=== PATIENT | female | born 1975 | race Caucasian/White ===

== ENCOUNTER 2016-12-19 16:23 | Emergency (ER) | payer BC ==
[~2016-12-19] VITALS: Ht 170.2 cm; Wt 122.5 kg
[~2016-12-19 16:23] MED LIST: AMLO5TAB4 PO; CLON0.5T20 PO; FLUO40CA9 PO; HYDR10TA2 PO; PROM12.56 PO; PROP10TA PO
[2016-12-19] MEDS ORDERED: IV NORMAL SALINE 1000ML BAG 1,000 ML IV SCH (18:05)
[2016-12-19] MEDS ORDERED: ONDANSETRON PF 4 MG/2 ML VIAL. IV ONE (18:15)
[2016-12-19] MEDS ORDERED: HYDROMORPHONE 2 MG/ML VIAL. IV ONE ×2 (18:15→19:45)
[2016-12-19] MEDS: LOPERAMIDE 2 MG CAPSULE PO PRN ×3 (19:01→20:05)
--- NOTE | 2016-12-19 19:26 | ED.ADGEN ---
Past Medical History Past Medical History: Anxiety, Depression, Diabetes-Type II, GERD, Hypertension , Migraines, Other Additional Past Medical Histor: Borderline Personality Disorder Past Surgical History: Appendectomy, Cholecystectomy, , Tonsillectomy Alcohol Use: None Drug Use: None Adult General Chief Complaint Chief Complaint: ABDOMINAL PAIN HPI HPI Patient is a 41 year old female presents emergency department complaining that she has had 3-4 week history of nausea, diarrhea, and right upper quadrant pain. Patient has been seen at multiple ERs and in her primary care physician for the same complaint. She states that the diarrhea was intolerable today. She tells me that she has been taking diazepam and Imodium for her diarrhea. She denies any vaginal bleeding or discharge. Denies any dysuria. She denies any fevers or chills. Review of Systems Review of Systems Constitutional: Denies fever or chills. [] Eyes: Denies change in visual acuity. [] HENT: Denies nasal congestion or sore throat. [] Respiratory: Denies cough or shortness of breath. [] Cardiovascular: Denies chest pain or edema. [] GI: Denies abdominal pain, nausea, vomiting, bloody stools or diarrhea. [] : Denies dysuria. [] Musculoskeletal: Denies back pain or joint pain. [] Integument: Denies rash. [] Neurologic: Denies headache, focal weakness or sensory changes. [] Endocrine: Denies polyuria or polydipsia. [] Lymphatic: Denies swollen glands. [] Psychiatric: Denies depression or anxiety. [] Current Medications Current Medications Current Medications Medications (Trade) Dose Ordered Sig/Zenaida Start Time Stop Time Status Last Admin Dose Admin Hydromorphone HCl (Dilaudid) 1 mg 1X ONCE 12/19/16 19:45 12/19/16 19:46 DC 12/19/16 19:59 1 MG Loperamide HCl (Imodium) 2 mg PRN Q15MIN PRN 12/19/16 18:15 12/19/16 20:19 DC 12/19/16 20:04 2 MG Ondansetron HCl 4 mg 4 mg 1X ONCE 12/19/16 18:15 12/19/16 18:16 DC 12/19/16 18:50 4 MG Sodium Chloride (Iv Sodium Chloride 0.9% 1000ml Bag) 1,000 ml @ 1,000 mls/hr Q1H 12/19/16 18:05 12/19/16 19:04 DC 12/19/16 18:48 1,000 MLS/HR Allergies Allergies Allergies Coded Allergies Type Severity Reaction Last Updated Verified Nitrofurantoin Macrocrystal Allergy Intermediate hives 12/19/16 Yes eletriptan HBr Allergy Intermediate "Heart races" 12/19/16 Yes metoclopramide HCl Allergy Intermediate rash 12/19/16 Yes nalbuphine HCl Allergy Intermediate itch 12/19/16 Yes nitrofurantoin Allergy Intermediate hives 12/19/16 Yes prochlorperazine edisylate Adverse Reaction Intermediate "Shakes" 12/19/16 Yes prochlorperazine maleate Adverse Reaction Intermediate "Shakes" 12/19/16 Yes Physical Exam Physical Exam Constitutional: Well developed, well nourished, no acute distress, non-toxic appearance. [] HENT: Normocephalic, atraumatic, bilateral external ears normal, oropharynx moist, no oral exudates, nose normal. [] Eyes: PERRLA, EOMI, conjunctiva normal, no discharge. [] Neck: Normal range of motion, no tenderness, supple, no stridor. [] Cardiovascular:Heart rate regular rhythm, no murmur [] Lungs & Thorax: Bilateral breath sounds clear to auscultation [] Abdomen: Bowel sounds normal, soft, no tenderness, no masses, no pulsatile masses. [] Skin: Warm, dry, no erythema, no rash. [] Back: No tenderness, no CVA tenderness. [] Extremities: No tenderness, no cyanosis, no clubbing, ROM intact, no edema. [] Neurologic: Alert and oriented X 3, normal motor function, normal sensory function, no focal deficits noted. [] Psychologic: Affect normal, judgement normal, mood normal. [] Current Patient Data Vital Signs Vital Signs Date Time Temp Pulse Resp B/P Pulse Ox O2 Delivery O2 Flow Rate FiO2 12/19/16 20:10 78 20 114/74 94 Room Air 12/19/16 16:50 98.9 98.9 EKG EKG [] Radiology/Procedures Radiology/Procedures KUB interpreted by me, no acute process noted, no air-fluid levels. [] Course & Med Decision Making Course & Med Decision Making Pertinent Labs and Imaging studies reviewed. (See chart for details) Patient has had no diarrhea while here in emergency department. She did receive a dose of loperamide. She will be discharged home with prescription for Lomotil as well as instructions to follow-up with her physician. [] Dragon Disclaimer Dragon Disclaimer This electronic medical record was generated, in whole or in part, using a voice recognition dictation system. VANESSA MCCORD MD Dec 19, 2016 19:26
[2016-12-19] MEDS ORDERED: DIPH1TAB PO (19:44)
[2016-12-19 20:10] VITALS: BP 114/74
--- NOTE | 2016-12-20 08:00 | RAD ---
KUB, 12/19/2016: History: Abdominal pain The abdominal gas pattern is unremarkable without evidence of obstruction. Surgical clips are present in the right upper quadrant. There is no evidence of organomegaly. Lower pelvic calcifications are compatible with phleboliths. IMPRESSION: No acute abdominal abnormality is detected.
[2016-12-20] MEDS ORDERED: FLUC150T PO (12:32)
== END 2016-12-19 20:10 | disposition home or self-care (01) ==
LOC: ER 16:23
DX: R10.11 Right upper quadrant pain (principal); R19.7 Diarrhea, unspecified; R11.0 Nausea; F41.9 Anxiety disorder, unspecified; F32.9 Major depressive disorder, single episode, unspecified; E11.9 Type 2 diabetes mellitus without complications; I10 Essential (primary) hypertension; K21.9 Gastro-esophageal reflux disease without esophagitis; Z88.8 Allergy status to other drugs, medicaments and biological substances; Z90.49 Acquired absence of other specified parts of digestive tract
CPT/HCPCS: 74000; 96361; 96374; 96375; 96376; 99284; J1170; J2405; J7030

== ENCOUNTER 2017-02-13 16:17 | Emergency (ER) | payer BC ==
[~2017-02-13] VITALS: Ht 170.2 cm; Wt 74.8 kg
[~2017-02-13 16:17] MED LIST changes: +DIPH1TAB PO; +FLUC150T PO
[2017-02-13] MEDS ORDERED: PROMETHAZINE 12.5 MG in IV NORMAL SALINE 50ML 50 ML IV ONE (17:45)
[2017-02-13] MEDS ORDERED: DIPHENHYDRAMINE 50 MG/ML VIAL IVP ONE (18:00)
[2017-02-13] MEDS ORDERED: methylPREDNISolone SOD SUCC PF 125 MG/2 ML VIAL. IV ONE (18:00)
[2017-02-13] MEDS ORDERED: IV NORMAL SALINE 1000ML BAG 1,000 ML IV ONE (18:00)
[2017-02-13] MEDS ORDERED: BUTA1CAP29 PO (18:26)
--- NOTE | 2017-02-13 18:27 | PHYS DOC ---
Past Medical History Past Medical History: Anxiety, Depression, Diabetes-Type II, GERD, Hypertension , Migraines, Other Additional Past Medical Histor: Borderline Personality Disorder Past Surgical History: Appendectomy, Cholecystectomy, , Tonsillectomy , Tubal ligation, Other Additional Past Surgical Histo: Colonoscopy,Sinus tumor removed Alcohol Use: None Drug Use: None Adult General Chief Complaint Chief Complaint: HEADACHE HPI HPI 41-year-old female with a long-standing history of migraine headaches presents with a headache consistent with her previous migraine since yesterday morning. She states pain is 10 out of 10 currently. She denies any fever or neck pain. She denies any lateralizing neurologic weakness. She does admit to photophobia and phonophobia. [] Review of Systems Review of Systems Constitutional: Denies fever or chills [] Eyes: Denies change in visual acuity, redness, or eye pain [] HENT: Denies nasal congestion or sore throat [] Respiratory: Denies cough or shortness of breath [] Cardiovascular: No additional information not addressed in HPI [] GI: Denies abdominal pain, nausea, vomiting, bloody stools or diarrhea [] : Denies dysuria or hematuria [] Musculoskeletal: Denies back pain or joint pain [] Integument: Denies rash or skin lesions [] Neurologic: Per history of present illness [] Endocrine: Denies polyuria or polydipsia [] Current Medications Current Medications Current Medications Medications (Trade) Dose Ordered Sig/Zenaida Start Time Stop Time Status Last Admin Dose Admin Diphenhydramine HCl (Benadryl) 25 mg 1X ONCE 02/13/17 18:00 02/13/17 18:01 DC 02/13/17 18:01 25 MG Methylprednisolone Sodium Succinate 125 mg 125 mg 1X ONCE 02/13/17 18:00 02/13/17 18:01 DC 02/13/17 18:01 125 MG Promethazine HCl/ Sodium Chloride (Phenergan/Iv Sodium Chloride 0.9% 50ml) 50.5 ml @ 101 mls/hr 1X ONCE 02/13/17 17:45 02/13/17 18:14 DC 02/13/17 18:03 101 MLS/HR Sodium Chloride (Iv Sodium Chloride 0.9% 1000ml Bag) 1,000 ml @ 1,000 mls/hr 1X ONCE 02/13/17 18:00 02/13/17 18:59 02/13/17 18:02 1,000 MLS/HR Allergies Allergies Allergies Coded Allergies Type Severity Reaction Last Updated Verified Nitrofurantoin Macrocrystal Allergy Intermediate hives 12/19/16 Yes eletriptan HBr Allergy Intermediate "Heart races" 12/19/16 Yes metoclopramide HCl Allergy Intermediate rash 12/19/16 Yes nalbuphine HCl Allergy Intermediate itch 12/19/16 Yes nitrofurantoin Allergy Intermediate hives 12/19/16 Yes prochlorperazine edisylate Adverse Reaction Intermediate "Shakes" 12/19/16 Yes prochlorperazine maleate Adverse Reaction Intermediate "Shakes" 12/19/16 Yes Physical Exam Physical Exam Constitutional: Well developed, well nourished, no acute distress, non-toxic appearance. [] HENT: Normocephalic, atraumatic, bilateral external ears normal, oropharynx moist, no oral exudates, nose normal. [] Eyes: PERRLA, EOMI, conjunctiva normal, no discharge. [] Neck: Normal range of motion, no tenderness, supple, no stridor. [] Cardiovascular:Heart rate regular rhythm, no murmur [] Lungs & Thorax: Bilateral breath sounds clear to auscultation [] Abdomen: Bowel sounds normal, soft, no tenderness, no masses, no pulsatile masses. [] Skin: Warm, dry, no erythema, no rash. [] Back: No tenderness, no CVA tenderness. [] Extremities: No tenderness, no cyanosis, no clubbing, ROM intact, no edema. [] Neurologic: Alert and oriented X 3, normal motor function, normal sensory function, no focal deficits noted. [] Psychologic: Affect normal, judgement normal, mood normal. [] Current Patient Data Vital Signs Vital Signs Date Time Temp Pulse Resp B/P Pulse Ox O2 Delivery O2 Flow Rate FiO2 02/13/17 16:45 98.1 76 18 139/93 96 Room Air 98.1 EKG EKG [] Radiology/Procedures Radiology/Procedures [] Course & Med Decision Making Course & Med Decision Making Pertinent Labs and Imaging studies reviewed. (See chart for details) [ED course: Evaluation reveals a 41-year-old female with typical migraine type symptoms. Neurologic exam was completely benign. Patient was given IV fluids, Phenergan, Solu-Medrol and Benadryl with near complete resolution of her symptoms. I gave her prescription for Fioricet to take at home. She is stable for discharge] Ysabel Disclaimer Ysabel Disclaimer This electronic medical record was generated, in whole or in part, using a voice recognition dictation system. Departure Departure Impression: Primary Impression: Chronic migraine without aura Disposition: HOME, SELF-CARE Condition: STABLE Referrals: HAYLIE LERNER (PCP) Patient Instructions: Migraine Headache Additional Instructions: Thank you for allowing us to participate in your care today. Followup with your primary care physician in 3 days if your symptoms do not improve. Return to the emergency department you have any new or concerning findings. This should be evaluated by the primary care physician and any necessary consulting services for continued management within a few days after discharge. Return to emergency room if you have any new or concerning symptoms including but not limited to fever, chills, nausea, vomiting, intractable pain, any new rashes, chest pain, shortness of air, uncontrolled bleeding, difficulty breathing, and/or vision loss. You may have been prescribed medication that can change in your level of thinking and ability to operate machinery. These medications include hydrocodone and Ativan. Also, Benadryl has been known to do this as well. Be sure to check with your pharmacist and ask if the medications you've prescribed can affect your level of consciousness. I recommend not operating heavy machinery or driving while on medication such as these. Scripts Butalb/Acetaminophen/Caffeine (Fioricet 50-300-40 Mg Capsule)1 Each Capsule1 Each PO PRN Q4HRS PRN MIGRAINE HEADACHE #30 CAP Prov:MARY JOHNSON DO 02/13/17 Problem Qualifiers Primary Impression: Chronic migraine without aura Status migrainosus presence: without status migrainosus Intractability: not intractable Qualified Code: G43.709 - Chronic migraine without aura, not intractable, without status migrainosus MARY JOHNSON DO Feb 13, 2017 18:26
[2017-02-13 18:40] VITALS: BP 128/5
== END 2017-02-13 18:43 | disposition home or self-care (01) ==
LOC: ER 16:17
DX: G43.709 Chronic migraine without aura, not intractable, without status migrainosus (principal); E11.9 Type 2 diabetes mellitus without complications; I10 Essential (primary) hypertension; K21.9 Gastro-esophageal reflux disease without esophagitis; Z88.8 Allergy status to other drugs, medicaments and biological substances
CPT/HCPCS: 96365; 96375; 99284; J1200; J2550; J2930; J7030

== ENCOUNTER 2017-03-26 13:19 | Emergency (ER) | payer BC ==
[~2017-03-26] VITALS: Ht 165.1 cm; Wt 122.5 kg
[~2017-03-26 13:19] MED LIST changes: +BUTA1CAP29 PO
[2017-03-26 13:26] VITALS: BP 130/77
[2017-03-26] MEDS ORDERED: NAPROXEN 500 MG TABLET PO STA (13:53)
--- NOTE | 2017-03-26 14:05 | PHYS DOC ---
Past Medical History Past Medical History: Anxiety, Depression, Diabetes-Type II, GERD, Hypertension , Migraines, Other Additional Past Medical Histor: Borderline Personality Disorder Past Surgical History: Appendectomy, Cholecystectomy, , Tonsillectomy , Tubal ligation, Other Additional Past Surgical Histo: Colonoscopy,Sinus tumor removed Alcohol Use: None Drug Use: None Adult General Chief Complaint Chief Complaint: KNEE INJURY HPI HPI Patient is a 41 year old female with history of hypertension, diabetes type 2, depression, anxiety, acid reflex, migraine headaches, who presents today with 7 out of 10 sharp right medial knee pain that began today after she kicked a soccer ball. Patient denies falling. She states the pain is worse when she tries to flex the knee. Review of Systems Review of Systems Constitutional: Denies fever or chills [] Eyes: Denies change in visual acuity, redness, or eye pain [] Musculoskeletal: Right knee pain Integument: Denies rash or skin lesions [] Neurologic: Denies headache, focal weakness or sensory changes [] Endocrine: Denies polyuria or polydipsia [] Current Medications Current Medications Current Medications Medications (Trade) Dose Ordered Sig/Zenaida Start Time Stop Time Status Last Admin Dose Admin Naproxen (Naprosyn) 500 mg 1X STAT 03/26/17 13:53 03/26/17 13:57 DC 03/26/17 13:53 500 MG Allergies Allergies Allergies Coded Allergies Type Severity Reaction Last Updated Verified Nitrofurantoin Macrocrystal Allergy Intermediate hives 12/19/16 Yes eletriptan HBr Allergy Intermediate "Heart races" 12/19/16 Yes metoclopramide HCl Allergy Intermediate rash 12/19/16 Yes nalbuphine HCl Allergy Intermediate itch 12/19/16 Yes nitrofurantoin Allergy Intermediate hives 12/19/16 Yes prochlorperazine edisylate Adverse Reaction Intermediate "Shakes" 12/19/16 Yes prochlorperazine maleate Adverse Reaction Intermediate "Shakes" 12/19/16 Yes Physical Exam Physical Exam Constitutional: Well developed, well nourished, no acute distress, non-toxic appearance. [] HENT: Normocephalic, atraumatic, bilateral external ears normal, oropharynx moist, no oral exudates, nose normal. [] Skin: Warm, dry, no erythema, no rash. [] Back: No tenderness, no CVA tenderness. [] Extremities: Right knee with an old healed surgical incision on the anterior and knee. Tenderness on palpation of the right medial knee. Full range of motion to the right knee. Negative Jade sign and negative Reji's sign negative anterior-posterior drawer sign to the right knee. +2 right pedal pulse. Cap refill less than 2 seconds the right lower extremity. Sensation intact to the right lower extremity. Neurologic: Alert and oriented X 3, normal motor function, normal sensory function, no focal deficits noted. [] Psychologic: Affect normal, judgement normal, mood normal. [] Current Patient Data Vital Signs Vital Signs Date Time Temp Pulse Resp B/P (MAP) Pulse Ox O2 Delivery O2 Flow Rate FiO2 03/26/17 13:26 97.6 85 18 97 Room Air 97.6 EKG EKG [] Radiology/Procedures Radiology/Procedures [] Course & Med Decision Making Course & Med Decision Making Pertinent Labs and Imaging studies reviewed. (See chart for details) Patient is in the ED with complaints of right knee pain after kicking a soccer ball. Right knee x-rays interpreted by radiologist are negative for any acute findings. Ben wrap applied to the right knee by the bomb technician, neurovascular exam done by me is normal, cap refill less than 2 seconds. Ice elevation encouraged. Discharged with Ultram. Follow-up with orthopedic doctor in one week if pain continues. Dragon Disclaimer Dragon Disclaimer This electronic medical record was generated, in whole or in part, using a voice recognition dictation system. Departure Departure Impression: Primary Impression: Right knee sprain Disposition: 01 HOME, SELF-CARE Condition: STABLE Referrals: HAYLIE LERNER (PCP) JAGDISH EASON MD Follow-up in one week with an orthopedic doctor if pain continues Patient Instructions: Knee Sprain Additional Instructions: You were seen for right knee sprain. Your x-rays of the knee and negative for any acute findings.Wear the immobilizer provided as tolerated. Ice and elevate the extremity. You can put weight on it as tolerated. Follow-up with your own orthopedic doctor or the provided doctor in one week if pain continues. Scripts Tramadol Hcl (ULTRAM) 50 Mg Tablet 1 TAB PO Q6HRS, #30 TAB Prov: ABRAN VIRAMONTES ONLINE ADVERTISING DIRECTOR 03/26/17 Problem Qualifiers Primary Impression: Right knee sprain Encounter type: initial encounter Involved ligament of knee: unspecified ligament Qualified Codes: S83.91XA - Sprain of unspecified site of right knee , initial encounter ABRAN VIRAMONTES ONLINE ADVERTISING DIRECTOR March 26, 2017 14:05
--- NOTE | 2017-03-26 14:10 | RAD ---
Indication pain. Injury. AP oblique and lateral views of the right knee were obtained as well as a sunrise view. No bony abnormality is seen
[2017-03-26] MEDS ORDERED: TRAM-29 PO (14:22)
== END 2017-03-26 14:50 | disposition home or self-care (01) ==
LOC: ER 13:19
DX: S83.91XA Sprain of unspecified site of right knee, initial encounter (principal); E11.9 Type 2 diabetes mellitus without complications; I10 Essential (primary) hypertension; K21.9 Gastro-esophageal reflux disease without esophagitis; G43.909 Migraine, unspecified, not intractable, without status migrainosus; Z90.49 Acquired absence of other specified parts of digestive tract; Z98.890 Other specified postprocedural states; Z98.51 Tubal ligation status; Z88.8 Allergy status to other drugs, medicaments and biological substances
CPT/HCPCS: 73564; 99284-25

== ENCOUNTER 2017-04-20 23:57 | Emergency (ER) | payer BC ==
[~2017-04-20] VITALS: Ht 170.2 cm; Wt 118.4 kg
[~2017-04-20 23:57] MED LIST changes: +TRAM-29 PO
[2017-04-21 00:32] LABS: BILIRUBIN,URINE NEGATIVE (NEG); GLUCOSE,URINE NEGATIVE (NEG); NITRITE,URINE NEGATIVE (NEG); PROTEIN,URINE 30 mg/dL (NEG-TRACE); UROBILINOGEN,URINE 0.2 mg/dL (0.2 mg/dL)
[2017-04-21 00:36] LABS: BACTERIA,URINE MODERATE /HPF (0-FEW)
[2017-04-21 00:37] LABS: SQUAMOUS EPITHELIAL CELL,UR MANY /LPF
[2017-04-21] MEDS ORDERED: ONDANSETRON PF 4 MG/2 ML VIAL. IV ONE (00:45)
[2017-04-21] MEDS ORDERED: KETOROLAC TROMETHAMINE 30 MG/ML INJ. IV ONE (00:45)
[2017-04-21] MEDS ORDERED: fentaNYL PF VIAL 100 MCG/2 ML VIAL IV ONE (00:45)
--- NOTE | 2017-04-21 00:51 | PHYS DOC ---
Past Medical History Past Medical History: Anxiety, Depression, Diabetes-Type II, GERD, Hypertension , Kidney Stone, Migraines, Other Additional Past Medical Histor: Borderline Personality Disorder Past Surgical History: Appendectomy, Cholecystectomy, , Tonsillectomy , Tubal ligation, Other Additional Past Surgical Histo: Colonoscopy,Sinus tumor removed Alcohol Use: None Drug Use: None Adult General Chief Complaint Chief Complaint: FLANK PAIN HPI HPI Patient is a 41 year old female who presents with for evaluation of right flank pain radiating to right lower abdomen that started today. She states she is being treated for a urinary tract infection with Cipro for the past 3 days and is not improving. She now has hematuria today. States her flank pain feels similar to the one time she had a kidney stone prior. Pain is constant, achy, with intermittent fluctuations. She has mild nausea. She denies fever or chills, emesis, diarrhea, constipation, chest pain, cough, dyspnea. Review of Systems Review of Systems Constitutional: Denies fever or chills [] Eyes: Denies change in visual acuity, redness, or eye pain [] HENT: Denies nasal congestion or sore throat [] Respiratory: Denies cough or shortness of breath [] Cardiovascular: No additional information not addressed in HPI [] GI: Denies vomiting, bloody stools or diarrhea [] : Has dysuria and hematuria [] Musculoskeletal: Denies joint pain [] Integument: Denies rash or skin lesions [] Neurologic: Denies headache, focal weakness or sensory changes [] Endocrine: Denies polyuria or polydipsia [] Current Medications Current Medications Current Medications Medications (Trade) Dose Ordered Sig/[facility] Start Time Stop Time Status Last Admin Dose Admin Fentanyl Citrate (Fentanyl 2ml Vial) 75 mcg 1X ONCE 04/21/17 00:45 04/21/17 00:46 DC 04/21/17 00:49 75 MCG Ketorolac Tromethamine (Toradol) 10 mg 1X ONCE 04/21/17 00:45 04/21/17 00:46 DC 04/21/17 00:49 10 MG Ondansetron HCl (Zofran) 4 mg 1X ONCE 04/21/17 00:45 04/21/17 00:46 DC 04/21/17 00:48 4 MG Allergies Allergies Allergies Coded Allergies Type Severity Reaction Last Updated Verified Nitrofurantoin Macrocrystal Allergy Intermediate hives 1/30/17 Yes eletriptan HBr Allergy Intermediate "Heart races" 12/19/16 Yes metoclopramide HCl Allergy Intermediate rash 12/19/16 Yes nalbuphine HCl Allergy Intermediate itch 12/19/16 Yes nitrofurantoin Allergy Intermediate hives 12/19/16 Yes tobramycin Allergy Unknown swelling - lips, eyes 04/21/17 Yes prochlorperazine edisylate Adverse Reaction Intermediate "Shakes" 12/19/16 Yes prochlorperazine maleate Adverse Reaction Intermediate "Shakes" 12/19/16 Yes Physical Exam Physical Exam Constitutional: Well developed, well nourished, no acute distress, non-toxic appearance. [] HENT: Normocephalic, atraumatic, bilateral external ears normal, oropharynx moist, nose normal. [] Eyes: PERRLA, EOMI. [] Neck: Normal range of motion, supple. [] Cardiovascular:Heart rate regular rhythm [] Lungs & Thorax: Bilateral breath sounds clear to auscultation [] Abdomen: Bowel sounds normal, soft, no tenderness. [] Skin: Warm, dry, no erythema, no rash. [] Back: No tenderness. Mild right CVA tenderness; no left CVA tenderness. [] Extremities: No tenderness, ROM intact, no edema. [] Neurologic: Alert and oriented X 3, normal motor function, normal sensory function, no focal deficits noted. [] Psychologic: Affect normal, judgement normal, mood normal. [] Current Patient Data Vital Signs Vital Signs Date Time Temp Pulse Resp B/P (MAP) Pulse Ox O2 Delivery O2 Flow Rate FiO2 04/21/17 00:49 18 97 Room Air 04/21/17 00:09 99.1 85 125/89 (101) 99.1 Lab Values Laboratory Tests Test 04/20/17 23:32 04/21/17 00:09 04/21/17 00:30 04/21/17 01:10 POC Urine HCG, Qualitative Hcg negative (Negative) Urine Collection Type Unknown Urine Color Yellow Urine Clarity Cloudy Urine pH 6.0 Urine Specific [place] 1.015 Urine Protein 30 mg/dL (NEG-TRACE) Urine Glucose (UA) Negative mg/dL (NEG) Urine Ketones (Stick) Negative mg/dL (NEG) Urine Blood Large (NEG) Urine Nitrite Negative (NEG) Urine Bilirubin Negative (NEG) Urine Urobilinogen Dipstick 0.2 mg/dL (0.2 mg/dL) Urine Leukocyte Esterase Small (NEG) Urine RBC 1-2 /HPF (0-2) Urine WBC 5-10 /HPF (0-4) Urine Squamous Epithelial Cells Many /LPF Urine Bacteria Moderate /HPF (0-FEW) Urine Mucus Mod /LPF White Blood Count 8.0 x10^3/uL (4.0-11.0) Red Blood Count 4.34 x10^6/uL (3.50-5.40) Hemoglobin 12.5 g/dL (12.0-15.5) Hematocrit 37.8 % (36.0-47.0) Mean Corpuscular Volume 87 fL (79-100) Mean Corpuscular Hemoglobin 29 pg (25-35) Mean Corpuscular Hemoglobin Concent 33 g/dL (31-37) Red Cell Distribution Width 15.3 % (11.5-14.5) H Platelet Count 275 x10^3/uL (140-400) Neutrophils (%) (Auto) 43 % (31-73) Lymphocytes (%) (Auto) 46 % (24-48) Monocytes (%) (Auto) 8 % (0-9) Eosinophils (%) (Auto) 3 % (0-3) Basophils (%) (Auto) 1 % (0-3) Neutrophils # (Auto) 3.4 x10^3uL (1.8-7.7) Lymphocytes # (Auto) 3.7 x10^3/uL (1.0-4.8) Monocytes # (Auto) 0.6 x10^3/uL (0.0-1.1) Eosinophils # (Auto) 0.3 x10^3/uL (0.0-0.7) Basophils # (Auto) 0.0 x10^3/uL (0.0-0.2) Sodium Level 138 mmol/L (136-145) Potassium Level 3.5 mmol/L (3.5-5.1) Chloride Level 102 mmol/L (98-107) Carbon Dioxide Level 25 mmol/L (21-32) Anion Gap 11 (6-14) Blood Urea Nitrogen 7 mg/dL (7-20) Creatinine 0.9 mg/dL (0.6-1.0) Estimated GFR (Cockcroft-Gault) 68.3 Glucose Level 171 mg/dL (70-99) H Calcium Level 8.8 mg/dL (8.5-10.1) Laboratory Tests 04/21/17 00:30 Laboratory Tests 04/21/17 01:10 Radiology/Procedures Radiology/Procedures CT abdomen and pelvis without contrast IMPRESSION: 1. No renal or ureteral calculi. 2. Mild extrahepatic biliary dilatation status post cholecystectomy. Correlate for cholestasis to assess significance. Electronically signed by: Dhaval Manjarrez MD (04/21/2017 1:21 AM) Course & Med Decision Making Course & Med Decision Making Pertinent Labs and Imaging studies reviewed. (See chart for details) Laboratory evaluation is largely unremarkable other than signs of urinary tract infection. Imaging as above is largely unremarkable. She is feeling better after medications here. Will give short course of pain medication for concern of pyelonephritis. She is currently on Cipro, recommend calling PCP in the morning to see if urine culture is sensitive to Cipro. Will give prescription for Bactrim just in case it is not. She currently has a prescription for nausea medicine. Return precautions given. She understands and agrees with plan. Dragon Disclaimer Dragon Disclaimer This electronic medical record was generated, in whole or in part, using a voice recognition dictation system. Departure Departure Impression: Primary Impression: Pyelonephritis Disposition: 01 HOME, SELF-CARE Condition: STABLE Referrals: HAYLIE LERNER (PCP) Patient Instructions: Pyelonephritis, Adult, [id number] Additional Instructions: Continue Cipro at this time. Call your primary care doctor in the morning to see results of urine culture. Take Bactrim if urine culture indicates need of change of antibiotic. Take Tylenol or ibuprofen as needed for moderate pain. Take hydrocodone as needed for severe pain. Do not drink, drive or operate heavy machinery after taking hydrocodone as it may make you sleepy. Follow-up with your primary care doctor. Return for any concerns. Scripts Sulfamethoxazole/Trimethoprim (BACTRIM DS TABLET) 1 Each Tablet 1 TAB PO BID, #14 TAB Prov: Troy MCKEON MD 04/21/17 Hydrocodone Bit/Acetaminophen (HYDROCODONE-APAP 5-325 ) 1 Each Tablet 1-2 TAB PO PRN Q6HRS Y for PAIN, #10 TAB 0 Refills Prov: Troy MCKEON MD 04/21/17 Troy MCKEON MD Apr 21, 2017 00:51
[2017-04-21 00:54] LABS: BASO % 1 % (0-3); EOS % 3 % (0-3); HEMATOCRIT 37.8 % (36.0-47.0); HEMOGLOBIN 12.5 g/dL (12.0-15.5); LYMPH # 3.7 x10^3/uL (1.0-4.8); LYMPH % 46 % (24-48); MEAN CORPUSCULAR HEMOGLOBIN 29 pg (25-35); MEAN CORPUSCULAR HGB CONC 33 g/dL (31-37); MEAN CORPUSCULAR VOLUME 87 fL (79-100); MONO % 8 % (0-9); NEUT % 43 % (31-73); PLATELET COUNT 275 x10^3/uL (140-400); RED BLOOD COUNT 4.34 x10^6/uL (3.50-5.40); RED CELL DISTRIBUTION WIDTH 15.3 % (11.5-14.5)
--- NOTE | 2017-04-21 01:24 | RAD ---
EXAM: CT ABDOMEN/PELVIS WITHOUT CONTRAST. HISTORY: Right flank pain. TECHNIQUE: Computed tomography of the abdomen and pelvis was performed without intravenous contrast. COMPARISON: None. FINDINGS: Lung windows through the visualized portions of the bases reveal mild atelectasis. Bone windows reveal no suspicious lesions. No renal or ureteral calculi are identified. There are multiple phleboliths in the pelvis. There is no hydronephrosis. There are no bladder calculi. The gallbladder is surgically absent. The common duct measures 11 mm. There is no evidence of a distal obstructing lesion. The liver, spleen, pancreas, and adrenal glands are unremarkable without contrast. There are no pathologically enlarged lymph nodes. The appendix contains an appendicolith but does not appear inflamed. There is no obstruction. IMPRESSION: 1. No renal or ureteral calculi. 2. Mild extrahepatic biliary dilatation status post cholecystectomy. Correlate for cholestasis to assess significance. *One or more of the following individualized dose reduction techniques were utilized for this examination: 1. Automated exposure control. 2. Adjustment of the mA and/or kV according to patient size. 3. Use of iterative reconstruction technique. Electronically signed by: Dhaval Manjarrez MD (04/21/2017 1:21 AM)
[2017-04-21 01:27] LABS: CALCIUM 8.8 mg/dL (8.5-10.1); CREATININE 0.9 mg/dL (0.6-1.0); GFR 68.3; POTASSIUM 3.5 mmol/L (3.5-5.1)
[2017-04-21] MEDS ORDERED: HYDR-2666 PO (02:01)
[2017-04-21] MEDS ORDERED: SULF1TAB24 PO (02:01)
[2017-04-21 02:14] VITALS: BP 135/80
[2017-04-21] MEDS ORDERED: HYDROcodone/APAP 5/325MG 1 TAB TABLET PO ONE (02:15)
== END 2017-04-21 02:24 | disposition home or self-care (01) ==
LOC: ER 23:57
DX: N12 Tubulo-interstitial nephritis, not specified as acute or chronic (principal); G43.909 Migraine, unspecified, not intractable, without status migrainosus; I10 Essential (primary) hypertension; K21.9 Gastro-esophageal reflux disease without esophagitis; E11.9 Type 2 diabetes mellitus without complications; Z90.49 Acquired absence of other specified parts of digestive tract; Z87.442 Personal history of urinary calculi; Z88.1 Allergy status to other antibiotic agents; Z88.8 Allergy status to other drugs, medicaments and biological substances
CPT/HCPCS: 36415; 74176; 80048; 81001; 81025; 85027; 87086; 96374; 96375; 99285; J1885; J2405; J3010

== ENCOUNTER 2017-04-24 01:25 | Inpatient (IN) | payer BC ==
[~2017-04-24] VITALS: Ht 170.2 cm; Wt 120.9 kg
[~2017-04-24 01:25] MED LIST changes: +HYDR-2666 PO; +SULF1TAB24 PO
[2017-04-24] MEDS ORDERED: IV NORMAL SALINE 1000ML BAG 1,000 ML IV ONE (02:00)
[2017-04-24] MEDS ORDERED: ONDANSETRON PF 4 MG/2 ML VIAL. IV ONE (02:15)
[2017-04-24 02:46] LABS: BILIRUBIN,URINE NEGATIVE (NEG); GLUCOSE,URINE NEGATIVE (NEG); NITRITE,URINE NEGATIVE (NEG); PROTEIN,URINE NEGATIVE (NEG-TRACE); UROBILINOGEN,URINE 0.2 mg/dL (0.2 mg/dL)
[2017-04-24 03:32] LABS: RBC,URINE TNTC /HPF (0-2)
[2017-04-24 03:33] LABS: BACTERIA,URINE MODERATE /HPF (0-FEW); SQUAMOUS EPITHELIAL CELL,UR FEW /LPF
[2017-04-24] MEDS: fentaNYL PF VIAL 100 MCG/2 ML VIAL IV PRN ×8 (03:35→23:05)
[2017-04-24 03:38] LABS: NEG OBC UR NEG; POS OBC UR POS
[2017-04-24 03:48] LABS: BASO % 1 % (0-3); EOS % 3 % (0-3); HEMATOCRIT 33.9 % (36.0-47.0); HEMOGLOBIN 11.1 g/dL (12.0-15.5); LYMPH # 2.9 x10^3/uL (1.0-4.8); LYMPH % 48 % (24-48); MEAN CORPUSCULAR HEMOGLOBIN 29 pg (25-35); MEAN CORPUSCULAR HGB CONC 33 g/dL (31-37); MEAN CORPUSCULAR VOLUME 88 fL (79-100); MONO % 8 % (0-9); NEUT % 40 % (31-73); PLATELET COUNT 197 x10^3/uL (140-400); RED BLOOD COUNT 3.86 x10^6/uL (3.50-5.40); RED CELL DISTRIBUTION WIDTH 15.2 % (11.5-14.5); WHITE BLOOD COUNT 6.1 x10^3/uL (4.0-11.0)
[2017-04-24 04:02] LABS: CALCIUM 9.4 mg/dL (8.5-10.1); CREATININE 0.8 mg/dL (0.6-1.0); GFR 78.3; POTASSIUM 4.8 mmol/L (3.5-5.1)
[2017-04-24] MEDS ORDERED: LIDO:MAALOX:DONNATAL 1:1:1 15 ML SINGLE DOSE SWSW ONE (04:45)
[2017-04-24] MEDS ORDERED: ACETAMINOPHEN 325 MG TABLET. PO PRN (04:45)
--- NOTE | 2017-04-24 04:59 | PHYS DOC ---
Past Medical History Past Medical History: Anxiety, Depression, Diabetes-Type II, GERD, Hypertension , Kidney Stone, Migraines, Other Additional Past Medical Histor: Borderline Personality Disorder Past Surgical History: Appendectomy, Cholecystectomy, , Tonsillectomy , Tubal ligation, Other Additional Past Surgical Histo: Colonoscopy,Sinus tumor removed Alcohol Use: None Drug Use: None Adult General Chief Complaint Chief Complaint: ABDOMINAL PAIN HPI HPI Patient is a 41 year old female who presents with flank pain & dysuria. The patient reports 1 week history of symptoms beginning with dysuria, urinary frequency/urgency. She had hematuria which is persistent. Today has new/ worsening flank pain which is worse on the right. Reports suprapubic tenderness. Reports nausea, denies vomiting. Denies fevers/chills, diarrhea. She has previous history of pyelonephritis & kidney stone which was spontaneously passed. She was seen here on 04/21 for same symptoms, discharged with bactrime (had previously been on cipro which was discontinued), now worsening symptoms. She has history of diabetes. Review of Systems Review of Systems Constitutional: Denies fever or chills Eyes: Denies change in visual acuity HENT: Denies nasal congestion or sore throat Respiratory: Denies cough or shortness of breath Cardiovascular: Denies chest pain or edema GI: Reporst nausea & abdominal pain, denies vomiting, or diarrhea : Reports dysuria & hematuria Musculoskeletal: Reports flank pain, denies joint pain Integument: Denies rash or skin lesions Neurologic: Denies headache Current Medications Current Medications Current Medications Medications (Trade) Dose Ordered Sig/Zenaida Start Time Stop Time Status Last Admin Dose Admin Fentanyl Citrate (Fentanyl 2ml Vial) 50 mcg PRN Q15MIN PRN 04/24/17 02:15 04/25/17 02:14 04/24/17 06:30 50 MCG Ondansetron HCl (Zofran) 4 mg 1X ONCE 04/24/17 02:15 04/24/17 02:16 DC 04/24/17 03:34 4 MG Sodium Chloride 1,000 ml @ 1,000 mls/hr 1X ONCE 04/24/17 02:00 04/24/17 02:59 DC 04/24/17 03:35 1,000 MLS/HR Allergies Allergies Allergies Coded Allergies Type Severity Reaction Last Updated Verified Nitrofurantoin Macrocrystal Allergy Intermediate hives 12/19/16 Yes eletriptan HBr Allergy Intermediate "Heart races" 12/19/16 Yes metoclopramide HCl Allergy Intermediate rash 12/19/16 Yes nalbuphine HCl Allergy Intermediate itch 12/19/16 Yes nitrofurantoin Allergy Intermediate hives 12/19/16 Yes tobramycin Allergy Unknown swelling - lips, eyes 04/21/17 Yes prochlorperazine edisylate Adverse Reaction Intermediate "Shakes" 12/19/16 Yes prochlorperazine maleate Adverse Reaction Intermediate "Shakes" 12/19/16 Yes Physical Exam Physical Exam Constitutional: obese, no acute distress, non-toxic appearance. HENT: Normocephalic, atraumatic, bilateral external ears normal, oropharynx moist, nose normal. Eyes: conjunctiva normal, no discharge. Neck: supple, no stridor. Cardiovascular: RRR, no murmurs, no edema. Lungs & Thorax: LCTAB, no wheezing, no respiratory distress. Abdomen: soft, no focal abdominal tenderness, no masses or pulsatile masses, no rebound/guarding, nondistended. Skin: Warm, dry, no erythema, no rash. Back: R > L CVA tenderness is present Extremities: No tenderness, no edema. Neurologic: Alert and oriented X 3, no focal deficits noted. Psychologic: Affect normal, judgement normal, mood normal. Current Patient Data Vital Signs Vital Signs Date Time Temp Pulse Resp B/P (MAP) Pulse Ox O2 Delivery O2 Flow Rate FiO2 04/24/17 01:40 98.7 102 18 152/84 (106) 96 Room Air 98.7 Lab Values Laboratory Tests Test 04/24/17 01:22 04/24/17 03:31 Urine Collection Type Unknown Urine Color Yellow Urine Clarity Clear Urine pH 6.0 Urine Specific [place] 1.010 Urine Protein Negative mg/dL (NEG-TRACE) Urine Glucose (UA) Negative mg/dL (NEG) Urine Ketones (Stick) Negative mg/dL (NEG) Urine Blood Large (NEG) Urine Nitrite Negative (NEG) Urine Bilirubin Negative (NEG) Urine Urobilinogen Dipstick 0.2 mg/dL (0.2 mg/dL) Urine Leukocyte Esterase Small (NEG) Urine RBC Tntc /HPF (0-2) Urine WBC 5-10 /HPF (0-4) Urine Squamous Epithelial Cells Few /LPF Urine Bacteria Moderate /HPF (0-FEW) Urine Test Negative (NEG) White Blood Count 6.1 x10^3/uL (4.0-11.0) Red Blood Count 3.86 x10^6/uL (3.50-5.40) Hemoglobin 11.1 g/dL (12.0-15.5) L Hematocrit 33.9 % (36.0-47.0) L Mean Corpuscular Volume 88 fL (79-100) Mean Corpuscular Hemoglobin 29 pg (25-35) Mean Corpuscular Hemoglobin Concent 33 g/dL (31-37) Red Cell Distribution Width 15.2 % (11.5-14.5) H Platelet Count 197 x10^3/uL (140-400) Neutrophils (%) (Auto) 40 % (31-73) Lymphocytes (%) (Auto) 48 % (24-48) Monocytes (%) (Auto) 8 % (0-9) Eosinophils (%) (Auto) 3 % (0-3) Basophils (%) (Auto) 1 % (0-3) Neutrophils # (Auto) 2.5 x10^3uL (1.8-7.7) Lymphocytes # (Auto) 2.9 x10^3/uL (1.0-4.8) Monocytes # (Auto) 0.5 x10^3/uL (0.0-1.1) Eosinophils # (Auto) 0.2 x10^3/uL (0.0-0.7) Basophils # (Auto) 0.0 x10^3/uL (0.0-0.2) Sodium Level 136 mmol/L (136-145) Potassium Level 4.8 mmol/L (3.5-5.1) Chloride Level 102 mmol/L (98-107) Carbon Dioxide Level 25 mmol/L (21-32) Anion Gap 9 (6-14) Blood Urea Nitrogen 9 mg/dL (7-20) Creatinine 0.8 mg/dL (0.6-1.0) Estimated GFR (Cockcroft-Gault) 78.3 Glucose Level 186 mg/dL (70-99) H Calcium Level 9.4 mg/dL (8.5-10.1) Laboratory Tests 04/24/17 03:31 Laboratory Tests 04/24/17 03:31 EKG EKG [] Radiology/Procedures Radiology/Procedures CT from previous visit on 04/21: PROCEDURE: CT ABDOMEN PELVIS WO CONTRAST EXAM: CT ABDOMEN/PELVIS WITHOUT CONTRAST. HISTORY: Right flank pain. TECHNIQUE: Computed tomography of the abdomen and pelvis was performed without intravenous contrast. COMPARISON: None. FINDINGS: Lung windows through the visualized portions of the bases reveal mild atelectasis. Bone windows reveal no suspicious lesions. No renal or ureteral calculi are identified. There are multiple phleboliths in the pelvis. There is no hydronephrosis. There are no bladder calculi. The gallbladder is surgically absent. The common duct measures 11 mm. There is no evidence of a distal obstructing lesion. The liver, spleen, pancreas, and adrenal glands are unremarkable without contrast. There are no pathologically enlarged lymph nodes. The appendix contains an appendicolith but does not appear inflamed. There is no obstruction. IMPRESSION: 1. No renal or ureteral calculi. 2. Mild extrahepatic biliary dilatation status post cholecystectomy. Correlate for cholestasis to assess significance. *One or more of the following individualized dose reduction techniques were utilized for this examination: 1. Automated exposure control. 2. Adjustment of the mA and/or kV according to patient size. 3. Use of iterative reconstruction technique. Electronically signed by: Dhaval Manjarrez MD (04/21/2017 1:21 AM) DICTATED and SIGNED BY: GABRIELA MANJARREZ MD DATE: 04/21/17 0114[] Course & Med Decision Making Course & Med Decision Making Pertinent Labs and Imaging studies reviewed. (See chart for details) The patient presents with urinary symptoms & flank pain. Previous culture shows mixed tutu, no susceptibilities given. Gave IV fluids, zofran, pain medication. Obtained labs which are as above, UA still shows blood & infection. She did not feel better after treatment & has failed outpatient management with 2 different antibiotics. She agrees with offered admission. Gave IV rocephin in the ED & urine culture sent, again. Discussed with Dr. Oglesby who agrees to admit to inpatient status. The patient is admitted in stable condition. [] Dragon Disclaimer Dragon Disclaimer This electronic medical record was generated, in whole or in part, using a voice recognition dictation system. Departure Departure Impression: Primary Impression: Acute pyelonephritis Additional Impression: Hyperglycemia Disposition: ADMITTED INPATIENT Admitting Physician: Niyah Oglesby Condition: STABLE Referrals: HAYLIE LERNER (PCP) Problem Qualifiers MELISSA ABRAHAM MD Apr 24, 2017 04:59
--- NOTE | 2017-04-24 06:20 | ACF ---
Admission Forms Criteria PYELONEPHRITIS, ACUTE Clinical Indications for Admission to Inpatient Care (Place 'X' for any and all applicable criteria): Admission is indicated for ANY ONE of the following 1,2,3,4,5 [ ]I. Outpatient treatment has failed or is not feasible (eg, multidrug- resistant organism).5 [ ]II. beyond 24 weeks' gestation6 [ ]III. Hemodynamic instability [ ]IV. Immunocompromised state (eg, AIDS, diabetes, sickle cell disease) [ ]V. Known renal or urologic abnormalities (eg, indwelling catheter, structural abnormalities, renal calculi, urinary stent, previous urologic surgery) [ ]. Condition that requires drainage procedure, including ANY ONE of the following: [ ]a) Urinary obstruction [ ]b) Pyelitis [ ]c) Pyonephrosis [ ]d) Renal or perinephric abscess [ ]e) Emphysematous pyelonephritis 7 [X]VII. Inpatient admission required rather than observation care (Also use Pyelonephritis, Acute: Observation Care Criteria as appropriate) because of ANY ONE of the following: [ ]a) High fever or infection requiring inpatient admission as indicated by ANY ONE of [id number] [ ]A. Documented bacteremia [ ]B. Temp>104.9 [id number] (oral) [ ]C. Temp>103.10F (oral) or <96.80F (rectal) that does not respond to all emergency treatment [ ]b) Acute renal failure [ ]c) Other significant finding or clinical condition judged not to be within the scope of observation care [ ]d) IV fluid to replace significant ongoing (eg, for over 24hrs) losses (> 3 L/m2 per day) [X]e) Other condition,treatment or monitoring requiring inpatient admission The original [employer] content created by [employer] has been revised. The portions of the content which have been revised are identified through the use of italic text or in bold, and [employer] [facility] has neither reviewed nor approved the modified material. All other unmodified content is copyright [employer]. Please see references footnoted in the original [employer] edition 2016 Admission Criteria Met?: Yes MARY MORATAYA Apr 24, 2017 06:20
[2017-04-24 07:15] VITALS: BP 124/79
[2017-04-24 10:49] VITALS: BP 111/64
--- NOTE | 2017-04-24 12:17 | HP ---
ADMIT DATE: 04/24/2017 CHIEF COMPLAINT: Abdominal pain. HISTORY OF PRESENT ILLNESS: The patient is a pleasant 41-year-old female who has had dysuria and flank pain. She has previous kidney stones. She presented for evaluation. Imaging actually did not show any kidney stones. Her urine showed a small amount of leukocyte esterase and 5-10 white cells. She has now been admitted with UTI. PAST MEDICAL HISTORY: Anxiety, depression, diabetes, hyperlipidemia, kidney stones, migraines, borderline personality disorder, cholecystectomy, , tonsillectomy, tubal ligation, colonoscopy, sinus tumor removed, appendectomy. ALLERGIES: NITROFURANTOIN, METOCLOPRAMIDE, NUBAIN, PROMETHAZINE, TOBRAMYCIN. FAMILY HISTORY: Diabetes. SOCIAL HISTORY: She does not drink, smoke or take drugs. She stays at home with her autistic child. MEDICATIONS: Reviewed, please refer to the MRAD. REVIEW OF SYSTEMS: GENERAL: No history of weight change, weakness or fevers. SKIN: No bruising, hair changes or rashes. EYES: No blurred, double or loss of vision. NOSE AND THROAT: No history of nosebleeds, hoarseness or sore throat. HEART: No history of palpitations, chest pain or shortness of breath on exertion. LUNGS: Denies cough, hemoptysis, wheezing or shortness of breath. GASTROINTESTINAL: She complains of abdominal pain. GENITOURINARY: No history of frequency, urgency, hesitancy or nocturia. NEUROLOGIC: Denies history of numbness, tingling, tremor or weakness. PSYCHIATRIC: No history of panic, anxiety or depression. ENDOCRINE: No history of heat or cold intolerance, polyuria or polydipsia. EXTREMITIES: Denies muscle weakness, joint pain, pain on walking or stiffness. PHYSICAL EXAMINATION: VITAL SIGNS: Temperature afebrile, pulse 92, respirations 18, blood pressure 152/84. GENERAL: She is alert, cooperative. HEART: Normal S1, S2. LUNGS: Clear. ABDOMEN: Soft. Decreased bowel sounds, slightly tender. EXTREMITIES: No edema. SKIN: No rashes. PSYCHIATRIC: Stable. VASCULAR: Good capillary refill. ENDOCRINE: No thyromegaly. LYMPHATICS: No cervical nodes. HEMATOPOIETIC: No bruising. LABORATORY DATA: White count 6, hemoglobin 11, platelets 197. Electrolytes are normal. Urinalysis did show UTI. ASSESSMENT AND PLAN: Urinary tract infection with intractable abdominal pain, perhaps early pyelo. The patient is being admitted. We will give her IV antibiotics, IV fluids, p.r.n. narcotics. Continue home medicines. CHEYANNE EDOUARD DO DR: JACEK/henry JOB#: [id number] / [id number]
[2017-04-24] MEDS: ONDANSETRON PF 4 MG/2 ML VIAL. IV PRN (12:39)
[2017-04-24] MEDS: IV NORMAL SALINE 1000ML BAG 1,000 ML IV SCH ×3 (13:00→21:36)
[2017-04-24 15:08] VITALS: BP 115/65
[2017-04-24 17:03] VITALS: BP 115/65
[2017-04-24 19:00] VITALS: BP 139/91
[2017-04-24 23:00] VITALS: BP 134/81
[2017-04-25] MEDS: fentaNYL PF VIAL 100 MCG/2 ML VIAL IV PRN ×4 (01:57→09:02)
[2017-04-25] MEDS: ONDANSETRON PF 4 MG/2 ML VIAL. IV PRN ×2 (04:49→19:43)
[2017-04-25] MEDS ORDERED: BUTALB/APAP/CAFEIN 50/325/40MG TABLET. PO PRN (06:00)
[2017-04-25] MEDS: oxyCODONE/APAP 5/325 1 TAB TABLET PO PRN ×2 (06:10→10:39)
[2017-04-25 07:00] VITALS: BP 128/69
[2017-04-25 10:39] VITALS: BP 125/78
[2017-04-25] MEDS: HYDROmorphone 2 MG/ML VIAL IV PRN ×5 (12:08→23:24)
[2017-04-25 14:41] VITALS: BP 139/79
--- NOTE | 2017-04-25 16:26 | PDOC ---
PROGRESS NOTES Chief Complaint Chief Complaint Probable Pyelonephritis: History of Anxiety, depression, diabetes, hyperlipidemia, kidney stones, migraines, borderline personality disorder, cholecystectomy, , tonsillectomy, tubal ligation, colonoscopy, sinus tumor removed, appendectomy. History of Present Illness History of Present Illness Still co pain. Tearfull. VSS DW RN Vitals Vitals Vital Signs Date Time Temp Pulse Resp B/P (MAP) Pulse Ox O2 Delivery O2 Flow Rate FiO2 04/25/17 14:54 95 Room Air 04/25/17 14:41 98.4 89 18 139/79 (99) 98.4 Physical Exam Lungs: Clear, Other Labs LABS Laboratory Tests Test 04/24/17 16:49 04/24/17 21:16 04/25/17 07:29 04/25/17 11:26 Glucose (Fingerstick) 162 mg/dL (70-99) 168 mg/dL (70-99) 152 mg/dL (70-99) 148 mg/dL (70-99) Review of Systems Review of Systems co pain Request Dilaudid Assessment and Plan Assessmemt and Plan Problems Medical Problems: (1) Acute pyelonephritis Status: Acute (2) Hyperglycemia Status: Acute Probable Pyelonephritis: History of Anxiety, depression, diabetes, hyperlipidemia, kidney stones, migraines, borderline personality disorder, cholecystectomy, , tonsillectomy, tubal ligation, colonoscopy, sinus tumor removed, appendectomy. Plan IV antibx IV fluids Recheck labs 'Change from Fentanyl to Dilaudid Probable dc in am Problems: Comment Review of Relevant I have reviewed the following items froylan (where applicable) has been applied. Labs Laboratory Tests Test 04/24/17 01:22 04/24/17 03:31 04/24/17 07:14 04/24/17 11:42 Urine Collection Type Unknown Urine Color Yellow Urine Clarity Clear Urine pH 6.0 Urine Specific [place] 1.010 Urine Protein Negative mg/dL (NEG-TRACE) Urine Glucose (UA) Negative mg/dL (NEG) Urine Ketones (Stick) Negative mg/dL (NEG) Urine Blood Large (NEG) Urine Nitrite Negative (NEG) Urine Bilirubin Negative (NEG) Urine Urobilinogen Dipstick 0.2 mg/dL (0.2 mg/dL) Urine Leukocyte Esterase Small (NEG) Urine RBC Tntc /HPF (0-2) Urine WBC 5-10 /HPF (0-4) Urine Squamous Epithelial Cells Few /LPF Urine Bacteria Moderate /HPF (0-FEW) Urine Test Negative (NEG) White Blood Count 6.1 x10^3/uL (4.0-11.0) Red Blood Count 3.86 x10^6/uL (3.50-5.40) Hemoglobin 11.1 g/dL (12.0-15.5) Hematocrit 33.9 % (36.0-47.0) Mean Corpuscular Volume 88 fL (79-100) Mean Corpuscular Hemoglobin 29 pg (25-35) Mean Corpuscular Hemoglobin Concent 33 g/dL (31-37) Red Cell Distribution Width 15.2 % (11.5-14.5) Platelet Count 197 x10^3/uL (140-400) Neutrophils (%) (Auto) 40 % (31-73) Lymphocytes (%) (Auto) 48 % (24-48) Monocytes (%) (Auto) 8 % (0-9) Eosinophils (%) (Auto) 3 % (0-3) Basophils (%) (Auto) 1 % (0-3) Neutrophils # (Auto) 2.5 x10^3uL (1.8-7.7) Lymphocytes # (Auto) 2.9 x10^3/uL (1.0-4.8) Monocytes # (Auto) 0.5 x10^3/uL (0.0-1.1) Eosinophils # (Auto) 0.2 x10^3/uL (0.0-0.7) Basophils # (Auto) 0.0 x10^3/uL (0.0-0.2) Sodium Level 136 mmol/L (136-145) Potassium Level 4.8 mmol/L (3.5-5.1) Chloride Level 102 mmol/L (98-107) Carbon Dioxide Level 25 mmol/L (21-32) Anion Gap 9 (6-14) Blood Urea Nitrogen 9 mg/dL (7-20) Creatinine 0.8 mg/dL (0.6-1.0) Estimated GFR (Cockcroft-Gault) 78.3 Glucose Level 186 mg/dL (70-99) Calcium Level 9.4 mg/dL (8.5-10.1) Glucose (Fingerstick) 174 mg/dL (70-99) 156 mg/dL (70-99) Test 04/24/17 16:49 04/24/17 21:16 04/25/17 07:29 04/25/17 11:26 Glucose (Fingerstick) 162 mg/dL (70-99) 168 mg/dL (70-99) 152 mg/dL (70-99) 148 mg/dL (70-99) Laboratory Tests Test 04/24/17 16:49 04/24/17 21:16 04/25/17 07:29 04/25/17 11:26 Glucose (Fingerstick) 162 mg/dL (70-99) 168 mg/dL (70-99) 152 mg/dL (70-99) 148 mg/dL (70-99) Medications Current Medications Sodium Chloride 1,000 ml @ 1,000 mls/hr 1X ONCE IV Last administered on 03:35; Start 04/24/17 at 02:00; Stop 04/24/17 at 02:59; Status DC Ondansetron HCl (Zofran) 4 mg 1X ONCE IV Last administered on 04/24/17 03:34; Start 04/24/17 at 02:15; Stop 04/24/17 at 02:16; Status DC Fentanyl Citrate (Fentanyl 2ml Vial) 50 mcg PRN Q15MIN PRN IV PAIN GREATER THAN 3/10 Last administered on 04/24/17 06:30; Start 04/24/17 at 02:15; Stop 04/25 at 02:14; Status DC Multi-Ingredient Mouthwash/Gargle (Gi Cocktail Single Dose) 15 ml 1X ONCE SWSW Last administered on 04/24/17 04:48; Start 04/24/17 at 04:45; Stop 04/24/17 at 04:46; Status DC Ceftriaxone Sodium 50 ml @ 100 mls/hr 1X ONCE IV Last administered on 04:48; Start 04/24/17 at 04:45; Stop 04/24/17 at 05:14; Status DC Ondansetron HCl (Zofran) 4 mg PRN Q8HRS PRN IV NAUSEA/VOMITING Last administered on 04/25/17 04:49; Start 04/24/17 at 05:00; Stop 04/25/17 at 04:59; Status DC Fentanyl Citrate (Fentanyl 2ml Vial) 50 mcg PRN Q2HR PRN IV PAIN Last administered on 04/25/17 04:06; Start 04/24/17 at 05:00; Stop 04/25/17 at 04:59; Status DC Sodium Chloride 1,000 ml @ 125 mls/hr Q8H IV Last administered on 04/24/17 21: 36; Start 04/24/17 at 05:00; Stop 04/25/17 at 04:59; Status DC Acetaminophen (Tylenol) 650 mg PRN Q4HRS PRN PO FEVER; Start 04/24/17 at 04:45; Stop 04/25/17 at 04:44; Status DC Ceftriaxone Sodium 1 gm/ Sodium Chloride 50 ml @ 100 mls/hr Q24H IV Last administered on 04/25/17 09:03; Start 04/25/17 at 08:00 Acetaminophen/ Butalbital/ Caffeine (Fioricet) 1 tab PRN Q6HRS PRN PO MIGRAINE HEADACHE; Start 04/25/17 at 06:00 Oxycodone/ Acetaminophen (Percocet 5/325) 1 tab PRN Q4HRS PRN PO PAIN Last administered on 04/25/17 10:39; Start 04/25/17 at 06:00 Fentanyl Citrate (Fentanyl 2ml Vial) 50 mcg PRN Q2HR PRN IV PAIN Last administered on 04/25/17 09:02; Start 04/25/17 at 06:45 Hydromorphone HCl (Dilaudid) 1 mg PRN Q2HR PRN IV pain Last administered on 04/25 14:54; Start 04/25/17 at 11:30 Active Scripts Active Bactrim Ds Tablet (Sulfamethoxazole/Trimethoprim) 1 Each Tablet 1 Tab PO BID Hydrocodone-Apap 5-325 (Hydrocodone Bit/Acetaminophen) 1 Each Tablet 1-2 Tab PO PRN Q6HRS PRN Ultram (Tramadol Hcl) 50 Mg Tablet 1 Tab PO Q6HRS Fioricet 50-300-40 Mg Capsule (Butalb/Acetaminophen/Caffeine) 1 Each Capsule 1 Each PO PRN Q4HRS PRN Diflucan (Fluconazole) 150 Mg Tablet 1 Tab PO ONCE Lomotil Tablet (Diphenoxylate Hcl/Atropine) 1 Each Tablet 1 Tab PO QID PRN Promethazine Hcl 12.5 Mg Tablet 1 Tab PO Q6HRS Reported Propranolol Hcl 10 Mg Tablet 10 Mg PO TID Vitals/I & O Vital Sign - Last 24 Hours 04/24/17 04/24/17 04/24/17 04/24/17 17:03 17:59 19:00 20:00 Temp 98.6 98.6 98.6 98.6 Pulse 65 84 Resp 20 B/P (MAP) 115/65 (82) 139/91 (107) Pulse Ox 93 93 97 O2 Delivery Room Air Room Air Room Air 04/24/17 04/24/17 04/25/17 04/25/17 23:00 23:05 01:57 04:06 Temp 98.1 98.1 Pulse 80 Resp 20 16 18 16 B/P (MAP) 134/81 (98) Pulse Ox 99 98 100 O2 Delivery Room Air Room Air Room Air Room Air 04/25/17 04/25/17 04/25/17 04/25/17 04:36 06:10 07:00 07:00 Temp 97.9 97.9 Pulse 76 Resp 14 16 18 16 B/P (MAP) 128/69 (88) Pulse Ox 98 98 95 O2 Delivery Room Air Room Air Room Air Room Air 04/25/17 04/25/17 04/25/17 04/25/17 08:00 09:02 09:40 10:39 Pulse Ox 95 95 O2 Delivery Room Air Room Air Room Air Room Air 04/25/17 04/25/17 04/25/17 04/25/17 10:39 11:40 12:08 12:40 Temp 98.3 98.3 Pulse 82 Resp 17 B/P (MAP) 125/78 (94) Pulse Ox 98 98 98 98 O2 Delivery Room Air Room Air Room Air Room Air 04/25/17 04/25/17 14:41 14:54 Temp 98.4 98.4 Pulse 89 Resp 18 B/P (MAP) 139/79 (99) Pulse Ox 95 95 O2 Delivery Room Air Room Air Intake and Output 04/24/17 04/24/17 04/25/17 15:00 23:00 07:00 Intake Total 720 ml 1080 ml 850 ml Output Total 1100 ml 1050 ml Balance 720 ml -20 ml -200 ml Nutrition Consultation Dietary Evaluation: Comments: continue clears, monitor, may need ppn Expected Outcomes/Goals: diet adv/ tolerance Malnutrition Findings: Food and Nutrition Intake (Sev: <50% est energy req 5days Weight Status: Morbidly Obese CHEYANNE EDOUARD III, DO Apr 25, 2017 16:26
[2017-04-25 19:00] VITALS: BP 145/99
[2017-04-25] MEDS ORDERED: PROMETHAZINE 12.5 MG in IV NORMAL SALINE 50ML 50 ML IV PRN (22:45)
[2017-04-25 22:52] VITALS: BP 130/75
[2017-04-26] MEDS: HYDROmorphone 2 MG/ML VIAL IV PRN ×4 (01:58→11:29)
[2017-04-26 02:42] VITALS: BP 130/97
[2017-04-26] MEDS: ONDANSETRON PF 4 MG/2 ML VIAL. IV PRN ×2 (05:18→11:28)
[2017-04-26 07:00] VITALS: BP 124/88
[2017-04-26 10:52] VITALS: BP 150/78
--- NOTE | 2017-04-27 02:19 | DS ---
DATE OF DISCHARGE: 04/26/2017 ADMISSION DIAGNOSIS: Flank pain with renal stones. DISCHARGE DIAGNOSES: Resolving flank pain, resolving renal stones and urinary tract infection. HOSPITAL COURSE: The patient is a pleasant 41-year-old female, who has a history of renal stones. Basically, she presented with UTI. ____ see the stone imaging by clinically she seems We gave her fluids and antibiotics. She is doing better this morning. ____ she was seen and examined this morning. Heart sounds were normal. Lungs were clear. Abdomen is soft. Decreased bowel sounds, nontender and extremities, no edema. DISPOSITION: Home. ACTIVITY: As tolerated. DIET: Low sodium. MEDICATIONS: Please see the MRAD. TOTAL TIME ON DISCHARGE: 31 minutes. CHEYANNE EDOUARD DO DR: JACEK/henry JOB#: [id number] / [id number]
== END 2017-04-26 13:27 | disposition home or self-care (01) | DRG 690 ==
LOC: ER 01:25 → ED HOLD 04:40 → 5 SOUTH 07:08
PROVIDERS: ADMIT Internal Medicine; ATTEND Internal Medicine
DX: N10 Acute pyelonephritis (principal); Z68.41 Body mass index [BMI] 40.0-44.9, adult; I10 Essential (primary) hypertension; K21.9 Gastro-esophageal reflux disease without esophagitis; N20.0 Calculus of kidney; F60.3 Borderline personality disorder; E66.01 Morbid (severe) obesity due to excess calories; E11.65 Type 2 diabetes mellitus with hyperglycemia; E78.5 Hyperlipidemia, unspecified; F32.9 Major depressive disorder, single episode, unspecified; F41.9 Anxiety disorder, unspecified; G43.909 Migraine, unspecified, not intractable, without status migrainosus; Z83.3 Family history of diabetes mellitus; Z87.442 Personal history of urinary calculi; Z98.51 Tubal ligation status; Z90.49 Acquired absence of other specified parts of digestive tract; Z79.899 Other long term (current) drug therapy; Z79.2 Long term (current) use of antibiotics; Z79.1 Long term (current) use of non-steroidal anti-inflammatories (NSAID); Z88.1 Allergy status to other antibiotic agents; Z88.8 Allergy status to other drugs, medicaments and biological substances; Z98.891 History of uterine scar from previous surgery; Z90.89 Acquired absence of other organs
CPT/HCPCS: 36415; 80048; 81001; 81025; 82962; 85027; 87086; 96361; 96365; 96375; J0690; J0696; J1170; J2405; J2550; J3010; J7030; 99285-25

== ENCOUNTER 2017-05-11 08:36 | Emergency (ER) | payer BC ==
[~2017-05-11] VITALS: Ht 170.2 cm; Wt 119.3 kg
[~2017-05-11 08:36] MED LIST changes: -HYDR-2666 PO; +HYDR-2758 PO; -TRAM-29 PO; +TRAM-48 PO
[2017-05-11] MEDS ORDERED: IV NORMAL SALINE 1000ML BAG 1,000 ML IV ONE ×2 (09:15→12:15)
[2017-05-11] MEDS ORDERED: fentaNYL PF VIAL 100 MCG/2 ML VIAL IV ONE ×3 (09:15→14:00)
[2017-05-11] MEDS ORDERED: ONDANSETRON PF 4 MG/2 ML VIAL. IV ONE (09:15)
[2017-05-11] MEDS ORDERED: CONTRAST GIVEN MC PRN (10:15)
[2017-05-11] MEDS ORDERED: IOHEXOL 300 MG/ML 75 ML VIAL IV ONE (10:15)
[2017-05-11 10:29] LABS: BILIRUBIN,URINE NEGATIVE (NEG); GLUCOSE,URINE NEGATIVE (NEG); NITRITE,URINE NEGATIVE (NEG); PH,URINE 5.5; PROTEIN,URINE NEGATIVE (NEG-TRACE); UROBILINOGEN,URINE 0.2 mg/dL (0.2 mg/dL)
--- NOTE | 2017-05-11 10:32 | PHYS DOC ---
Past Medical History Past Medical History: Anxiety, Depression, Diabetes-Type II, GERD, Hypertension , Kidney Stone, Migraines, Other Additional Past Medical Histor: Borderline Personality Disorder Past Surgical History: Appendectomy, Cholecystectomy, , Tonsillectomy , Tubal ligation, Other Additional Past Surgical Histo: Colonoscopy,Sinus tumor removed Alcohol Use: None Drug Use: None Adult General Chief Complaint Chief Complaint: ABDOMINAL PAIN HPI HPI Patient is a 41-year-old female with history of hypertension anxiety depression diabetes type 2 who presents today with nausea vomiting diarrhea and right lower quadrant abdominal pain that began 3 days ago. Patient is also complaining of a fever this morning. She states she took Tylenol and Imodium before coming to the ED. Patient is also complaining of dysuria. Patient states she was recently treated for urinary tract infection with Rocephin approximately 2 weeks ago. She is also complaining of dysuria. Patient denies any hematemesis or melena. Review of Systems Review of Systems Constitutional: fever Eyes: Denies change in visual acuity, redness, or eye pain [] HENT: Denies nasal congestion or sore throat [] Respiratory: Denies cough or shortness of breath [] Cardiovascular: No additional information not addressed in HPI [] GI: abdominal pain, nausea, vomiting, diarrhea [] : dysuria Musculoskeletal: Denies back pain or joint pain [] Integument: Denies rash or skin lesions [] Neurologic: Denies headache, focal weakness or sensory changes [] Endocrine: Denies polyuria or polydipsia [] Current Medications Current Medications Current Medications Medications (Trade) Dose Ordered Sig/Zenaida Start Time Stop Time Status Last Admin Dose Admin Fentanyl Citrate (Fentanyl 2ml Vial) 50 mcg 1X ONCE 05/11/17 14:00 05/11/17 14:03 DC 05/11/17 14:11 50 MCG Info (Do NOT chart on this entry -- for MONITORING) 1 each PRN DAILY PRN 05/11/17 10:15 05/11/17 14:32 DC Iohexol (Omnipaque 300 Mg/ml) 75 ml 1X ONCE 05/11/17 10:15 05/11/17 10:16 DC 05/11/17 12:35 75 ML Ondansetron HCl (Zofran) 4 mg 1X ONCE 05/11/17 09:15 05/11/17 09:16 DC 05/11/17 10:52 4 MG Sodium Chloride 1,000 ml @ 100 mls/hr 1X ONCE 05/11/17 12:15 05/11/17 14:32 DC 05/11/17 12:22 100 MLS/HR Allergies Allergies Allergies Coded Allergies Type Severity Reaction Last Updated Verified Nitrofurantoin Macrocrystal Allergy Intermediate hives 12/19/16 Yes eletriptan HBr Allergy Intermediate "Heart races" 12/19/16 Yes metoclopramide HCl Allergy Intermediate rash 12/19/16 Yes nalbuphine HCl Allergy Intermediate itch 12/19/16 Yes nitrofurantoin Allergy Intermediate hives 12/19/16 Yes tobramycin Allergy Unknown swelling - lips, eyes 04/21/17 Yes prochlorperazine edisylate Adverse Reaction Intermediate "Shakes" 12/19/16 Yes prochlorperazine maleate Adverse Reaction Intermediate "Shakes" 12/19/16 Yes Physical Exam Physical Exam Constitutional: Well developed, well nourished, no acute distress, non-toxic appearance. [] HENT: Normocephalic, atraumatic, bilateral external ears normal, oropharynx moist, no oral exudates, nose normal. [] Eyes: PERRLA, EOMI, conjunctiva normal, no discharge. [] Neck: Normal range of motion, no tenderness, supple, no stridor. [] Cardiovascular:Heart rate regular rhythm, no murmur [] Lungs & Thorax: Bilateral breath sounds clear to auscultation [] Abdomen: Rounded abdomen. Bowel sounds normal, soft, slight tenderness to the right lower quadrant with negative psoas sign, negative obturator sign, negative Rovsing sign, no masses, no pulsatile masses. [] Skin: Warm, dry, no erythema, no rash. [] Back: No tenderness, no CVA tenderness. [] Extremities: No tenderness, no cyanosis, no clubbing, ROM intact, no edema. [] Neurologic: Alert and oriented X 3, normal motor function, normal sensory function, no focal deficits noted. [] Psychologic: Affect normal, judgement normal, mood normal. [] Current Patient Data Vital Signs Vital Signs Date Time Temp Pulse Resp B/P (MAP) Pulse Ox O2 Delivery O2 Flow Rate FiO2 05/11/17 14:13 91 16 98/52 (67) 97 05/11/17 12:22 Room Air 05/11/17 08:45 98.5 98.5 Lab Values Laboratory Tests Test 05/11/17 08:41 05/11/17 11:25 Urine Collection Type Void Urine Color Yellow Urine Clarity Clear Urine pH 5.5 Urine Specific Justice 1.025 Urine Protein Negative mg/dL (NEG-TRACE) Urine Glucose (UA) Negative mg/dL (NEG) Urine Ketones (Stick) Negative mg/dL (NEG) Urine Blood Large (NEG) Urine Nitrite Negative (NEG) Urine Bilirubin Negative (NEG) Urine Urobilinogen Dipstick 0.2 mg/dL (0.2 mg/dL) Urine Leukocyte Esterase Small (NEG) Urine RBC >40 /HPF (0-2) Urine WBC Occ /HPF (0-4) Urine Squamous Epithelial Cells Mod /LPF Urine Bacteria 0 /HPF (0-FEW) Urine Hyaline Casts Few /HPF Urine Mucus Slight /LPF White Blood Count 6.7 x10^3/uL (4.0-11.0) Red Blood Count 3.92 x10^6/uL (3.50-5.40) Hemoglobin 11.2 g/dL (12.0-15.5) L Hematocrit 33.9 % (36.0-47.0) L Mean Corpuscular Volume 86 fL (79-100) Mean Corpuscular Hemoglobin 29 pg (25-35) Mean Corpuscular Hemoglobin Concent 33 g/dL (31-37) Red Cell Distribution Width 15.2 % (11.5-14.5) H Platelet Count 220 x10^3/uL (140-400) Neutrophils (%) (Auto) 46 % (31-73) Lymphocytes (%) (Auto) 44 % (24-48) Monocytes (%) (Auto) 7 % (0-9) Eosinophils (%) (Auto) 2 % (0-3) Basophils (%) (Auto) 1 % (0-3) Neutrophils # (Auto) 3.1 x10^3uL (1.8-7.7) Lymphocytes # (Auto) 2.9 x10^3/uL (1.0-4.8) Monocytes # (Auto) 0.5 x10^3/uL (0.0-1.1) Eosinophils # (Auto) 0.2 x10^3/uL (0.0-0.7) Basophils # (Auto) 0.0 x10^3/uL (0.0-0.2) Sodium Level 137 mmol/L (136-145) Potassium Level 3.5 mmol/L (3.5-5.1) Chloride Level 100 mmol/L (98-107) Carbon Dioxide Level 27 mmol/L (21-32) Anion Gap 10 (6-14) Blood Urea Nitrogen 12 mg/dL (7-20) Creatinine 1.1 mg/dL (0.6-1.0) H Estimated GFR (Cockcroft-Gault) 54.2 BUN/Creatinine Ratio 11 (6-20) Glucose Level 144 mg/dL (70-99) H Calcium Level 8.5 mg/dL (8.5-10.1) Total Bilirubin 0.2 mg/dL (0.2-1.0) Aspartate Amino Transferase (AST) 21 U/L (15-37) Alanine Aminotransferase (ALT) 20 U/L (14-59) Alkaline Phosphatase 93 U/L (46-116) Total Protein 6.9 g/dL (6.4-8.2) Albumin 3.7 g/dL (3.4-5.0) Albumin/Globulin Ratio 1.2 (1.0-1.7) Lipase 122 U/L (73-393) Laboratory Tests 05/11/17 11:25 Laboratory Tests 05/11/17 11:25 EKG EKG [] Radiology/Procedures Radiology/Procedures []PROCEDURE: CT ABD PELV W/ IV CONTRST ONLY Indication right lower quadrant abdominal pain. Contrast imaging through the abdomen and pelvis was performed. No oral contrast was administered. Approximately 75 cc of Omnipaque 300 was administered. Note is made of a previous examination of the abdomen and pelvis 04/21/2017. The history of appendectomy and cholecystectomy, and tubal ligation is noted. The lung bases are clear. The liver and spleen appear unremarkable. Clips are noted in the gallbladder fossa. The pancreas adrenal glands and kidneys appear unremarkable. There is a small renal cysts.. No acute finding is seen in the abdomen. In the pelvis no focal mass or inflammatory process is seen. IMPRESSION: No acute finding seen in the abdomen or pelvis DICTATED and SIGNED BY: DELIO STEWART MD DATE: 05/11/17 8995 CC: HAYLIE LERNER; ABRAN VIRAMONTES APRN ~ Course & Med Decision Making Course & Med Decision Making Pertinent Labs and Imaging studies reviewed. (See chart for details) This is a 41-year-old female patient who presents to the ED today with multiple complaints including right lower quadrant abdominal pain nausea vomiting diarrhea and dysuria. Patient is also complaining of fever. She was afebrile on arrival to the ED. Patient's labs including CT of the abdomen and pelvic were negative for any acute findings. Patient's symptoms are probably viral. Instructed her to push fluids maintain good hand hygiene. Follow-up with her doctor in 1-2 weeks. Dragon Disclaimer Dragon Disclaimer This electronic medical record was generated, in whole or in part, using a voice recognition dictation system. Departure Departure Impression: Primary Impression: Abdominal pain Additional Impressions: Nausea and vomiting Diarrhea Disposition: HOME, SELF-CARE Condition: STABLE Referrals: HAYLIE LERNER (PCP) Follow-up with your doctor as soon as possible Patient Instructions: Abdominal Pain, Diarrhea, Nausea and Vomiting, Easy-to- Read Additional Instructions: You were seen for abdominal pain nausea and vomiting. Your lab work does not have any acute findings. Your CT of the abdomen and pelvic is negative. Push fluids. Maintain good hand hygiene. Follow-up with your doctor in 1-3 days Scripts Diphenoxylate Hcl/Atropine (LOMOTIL TABLET) 1 Each Tablet 1 TAB PO TID Y for DIARRHEA, #30 TAB Prov: ABRAN VIRAMONTES APRN 05/11/17 Hydrocodone/Apap 5-325 (NORCO 5-325 TABLET) 1 Each Tablet 1-2 TAB PO Q4-6HRS, #6 TAB Prov: ABRAN VIRAMONTES APRN 05/11/17 Ondansetron (ZOFRAN ODT) 4 Mg Tab.rapdis 1 TAB SL Q8HRS, #15 TAB Prov: ABRAN VIRAMONTES APRN 05/11/17 Problem Qualifiers Primary Impression: Abdominal pain Abdominal location: generalized Qualified Codes: R10.84 - Generalized abdominal pain Additional Impressions: Nausea and vomiting Vomiting type: unspecified Vomiting Intractability: unspecified Qualified Codes: R11.2 - Nausea with vomiting, unspecified Diarrhea Diarrhea type: unspecified type Qualified Codes: R19.7 - Diarrhea, unspecified ABRAN VIRAMONTES APRN May 11, 2017 10:32
[2017-05-11 10:39] LABS: BACTERIA,URINE 0 /HPF (0-FEW); RBC,URINE >40 /HPF (0-2); SQUAMOUS EPITHELIAL CELL,UR MOD /LPF; WBC,URINE OCC /HPF (0-4)
[2017-05-11 12:18] LABS: BASO % 1 % (0-3); EOS % 2 % (0-3); HEMATOCRIT 33.9 % (36.0-47.0); HEMOGLOBIN 11.2 g/dL (12.0-15.5); LYMPH # 2.9 x10^3/uL (1.0-4.8); LYMPH % 44 % (24-48); MEAN CORPUSCULAR HEMOGLOBIN 29 pg (25-35); MEAN CORPUSCULAR HGB CONC 33 g/dL (31-37); MEAN CORPUSCULAR VOLUME 86 fL (79-100); MONO % 7 % (0-9); NEUT % 46 % (31-73); PLATELET COUNT 220 x10^3/uL (140-400); RED BLOOD COUNT 3.92 x10^6/uL (3.50-5.40); RED CELL DISTRIBUTION WIDTH 15.2 % (11.5-14.5); WHITE BLOOD COUNT 6.7 x10^3/uL (4.0-11.0)
[2017-05-11 12:21] LABS: CALCIUM 8.5 mg/dL (8.5-10.1); CREATININE 1.1 mg/dL (0.6-1.0); GFR 54.2; POTASSIUM 3.5 mmol/L (3.5-5.1)
[2017-05-11 12:28] LABS: ALBUMIN 3.7 g/dL (3.4-5.0); ALBUMIN/GLOBULIN RATIO 1.2 (1.0-1.7); TOTAL BILIRUBIN 0.2 mg/dL (0.2-1.0); TOTAL PROTEIN 6.9 g/dL (6.4-8.2)
--- NOTE | 2017-05-11 13:05 | RAD ---
Indication right lower quadrant abdominal pain. Contrast imaging through the abdomen and pelvis was performed. No oral contrast was administered. Approximately 75 cc of Omnipaque 300 was administered. Note is made of a previous examination of the abdomen and pelvis 04/21/2017. The history of appendectomy and cholecystectomy, and tubal ligation is noted. The lung bases are clear. The liver and spleen appear unremarkable. Clips are noted in the gallbladder fossa. The pancreas adrenal glands and kidneys appear unremarkable. There is a small renal cysts.. No acute finding is seen in the abdomen. In the pelvis no focal mass or inflammatory process is seen. IMPRESSION: No acute finding seen in the abdomen or pelvis
[2017-05-11] MEDS ORDERED: HYDR-971 PO (14:05)
[2017-05-11] MEDS ORDERED: DIPH1TAB PO (14:05)
[2017-05-11] MEDS ORDERED: ONDA4TAB10 SL (14:05)
[2017-05-11 14:13] VITALS: BP 98/52
== END 2017-05-11 14:25 | disposition home or self-care (01) ==
LOC: ER 08:36
DX: R10.84 Generalized abdominal pain (principal); R11.2 Nausea with vomiting, unspecified; R19.7 Diarrhea, unspecified; R10.31 Right lower quadrant pain; R30.0 Dysuria; R50.9 Fever, unspecified; F41.9 Anxiety disorder, unspecified; F32.9 Major depressive disorder, single episode, unspecified; E11.9 Type 2 diabetes mellitus without complications; K21.9 Gastro-esophageal reflux disease without esophagitis; I10 Essential (primary) hypertension; G43.909 Migraine, unspecified, not intractable, without status migrainosus; Z87.442 Personal history of urinary calculi; Z90.49 Acquired absence of other specified parts of digestive tract; Z98.51 Tubal ligation status; Z88.8 Allergy status to other drugs, medicaments and biological substances; Z88.1 Allergy status to other antibiotic agents
CPT/HCPCS: 36415; 74177; 80053; 81001; 81025; 83690; 85027; 87086; 96361; 96374; 96375; 96376; 99285; J2405; J3010; J7030; Q9967

== ENCOUNTER 2017-07-18 17:23 | Emergency (ER) | payer BC ==
[~2017-07-18] VITALS: Ht 170.2 cm; Wt 117.9 kg
[~2017-07-18 17:23] MED LIST changes: +HYDR-971 PO; +ONDA4TAB10 SL
[2017-07-18] MEDS ORDERED: fentaNYL PF VIAL 100 MCG/2 ML VIAL IV ONE (18:15)
[2017-07-18] MEDS ORDERED: ONDANSETRON PF 4 MG/2 ML VIAL. IV ONE (18:15)
[2017-07-18 18:24] LABS: BILIRUBIN,URINE NEGATIVE (NEG); GLUCOSE,URINE NEGATIVE (NEG); NITRITE,URINE NEGATIVE (NEG); PH,URINE 5.5; PROTEIN,URINE NEGATIVE (NEG-TRACE); UROBILINOGEN,URINE 0.2 mg/dL (0.2 mg/dL)
[2017-07-18 18:30] LABS: BACTERIA,URINE 0 /HPF (0-FEW); SQUAMOUS EPITHELIAL CELL,UR MOD /LPF; WBC,URINE 0 /HPF (0-4)
--- NOTE | 2017-07-18 19:23 | PHYS DOC ---
Past Medical History Past Medical History: Anxiety, Depression, Diabetes-Type II, GERD, Hypertension , Kidney Stone, Migraines, Other Additional Past Medical Histor: Borderline Personality Disorder Past Surgical History: Appendectomy, Cholecystectomy, , Tonsillectomy , Tubal ligation, Other Additional Past Surgical Histo: Colonoscopy,Sinus tumor removed Alcohol Use: None Drug Use: None Adult General Chief Complaint Chief Complaint: ABDOMINAL PAIN HPI HPI Patient is a 42 year old presents with right lower quadrant pain, diffuse lower back pain 2 days. Pain is describing is dull and cramping as though she were punched. Pain is rated moderate to severe. Patient is unable to find position of comfort. Pain is worse with palpation movement and ambulation. Patient also reports abnormal pencil. For the past 3 weeks. Patient had vaginal bleeding from day 1 through 15 of the month followed by a three-day break and continued light vaginal bleeding from the 18 to the today's date. Patient denies dizziness lightheadedness, chest pain shortness breath and palpitations. Remote history of tubal ligation some 10 years ago. Denies history of recent ovarian cyst. Denies urinary frequency urgency and frequency. No flank pain or history of kidney stones. No other acute symptoms or complaints. Review of Systems Review of Systems ROS as per HPI. All other ROS are negative. Current Medications Current Medications Current Medications Medications (Trade) Dose Ordered Sig/Zenaida Start Time Stop Time Status Last Admin Dose Admin Fentanyl Citrate (Fentanyl 2ml Vial) 50 mcg 1X ONCE 07/18/17 18:15 07/18/17 18:17 DC 07/18/17 20:18 50 MCG Info (Do NOT chart on this entry -- for MONITORING) 1 each PRN DAILY PRN 07/18/17 21:00 07/18/17 23:58 DC Iohexol (Omnipaque 300 Mg/ml) 75 ml 1X ONCE 07/18/17 21:00 07/18/17 21:01 DC Morphine Sulfate 5 mg 1X ONCE 07/18/17 20:45 07/18/17 20:46 DC 07/18/17 20:50 5 MG Ondansetron HCl (Zofran) 4 mg 1X ONCE 07/18/17 18:15 07/18/17 18:17 DC 07/18/17 20:17 4 MG Oxycodone/ Acetaminophen (Percocet 5/325) 1 tab 1X ONCE 07/18/17 23:00 07/18/17 23:01 DC 07/18/17 23:49 1 TAB Allergies Allergies Allergies Coded Allergies Type Severity Reaction Last Updated Verified Nitrofurantoin Macrocrystal Allergy Intermediate hives 12/19/16 Yes eletriptan HBr Allergy Intermediate "Heart races" 12/19/16 Yes metoclopramide HCl Allergy Intermediate rash 12/19/16 Yes nalbuphine HCl Allergy Intermediate itch 12/19/16 Yes nitrofurantoin Allergy Intermediate hives 12/19/16 Yes tobramycin Allergy Unknown swelling - lips, eyes 04/21/17 Yes prochlorperazine edisylate Adverse Reaction Intermediate "Shakes" 12/19/16 Yes prochlorperazine maleate Adverse Reaction Intermediate "Shakes" 12/19/16 Yes Physical Exam Physical Exam Constitutional: Well developed, well nourished, moderate discomfort secondary to pain, non-toxic appearance. [] HENT: Normocephalic, atraumatic, bilateral external ears normal, oropharynx moist, no oral exudates, nose normal. [] Eyes: PERRLA, EOMI, conjunctiva normal, no discharge. [] Neck: Normal range of motion, no tenderness, supple, no stridor. [] Cardiovascular:Heart rate regular rhythm, no murmur [] Lungs & Thorax: Bilateral breath sounds clear to auscultation [] Abdomen: Bowel sounds normal, soft, right lower quadrant pain, tenderness, no rebound rigidity or guarding. [] Skin: Warm, dry, no erythema, no rash. [] Back: No tenderness, no CVA tenderness. [] Extremities: No tenderness, no cyanosis, no clubbing, ROM intact, no edema. [] Neurologic: Alert and oriented X 3, normal motor function, normal sensory function, no focal deficits noted. [] Psychologic: Affect normal, judgement normal, mood normal. [] Current Patient Data Vital Signs Vital Signs Date Time Temp Pulse Resp B/P (MAP) Pulse Ox O2 Delivery O2 Flow Rate FiO2 07/18/17 23:47 78 18 172/86 (114) 95 Room Air 07/18/17 17:46 99.0 99.0 Lab Values Laboratory Tests Test 07/18/17 17:03 07/18/17 17:45 07/18/17 19:55 POC Urine HCG, Qualitative Hcg negative (Negative) Urine Collection Type Unknown Urine Color Yellow Urine Clarity Hazy Urine pH 5.5 Urine Specific Jackson 1.015 Urine Protein Negative mg/dL (NEG-TRACE) Urine Glucose (UA) Negative mg/dL (NEG) Urine Ketones (Stick) Negative mg/dL (NEG) Urine Blood Small (NEG) Urine Nitrite Negative (NEG) Urine Bilirubin Negative (NEG) Urine Urobilinogen Dipstick 0.2 mg/dL (0.2 mg/dL) Urine Leukocyte Esterase Negative (NEG) Urine RBC 1-2 /HPF (0-2) Urine WBC 0 /HPF (0-4) Urine Squamous Epithelial Cells Mod /LPF Urine Bacteria 0 /HPF (0-FEW) Urine Mucus Mod /LPF White Blood Count 4.6 x10^3/uL (4.0-11.0) Red Blood Count 3.73 x10^6/uL (3.50-5.40) Hemoglobin 10.8 g/dL (12.0-15.5) L Hematocrit 32.5 % (36.0-47.0) L Mean Corpuscular Volume 87 fL (79-100) Mean Corpuscular Hemoglobin 29 pg (25-35) Mean Corpuscular Hemoglobin Concent 33 g/dL (31-37) Red Cell Distribution Width 14.0 % (11.5-14.5) Platelet Count 176 x10^3/uL (140-400) Neutrophils (%) (Auto) 52 % (31-73) Lymphocytes (%) (Auto) 38 % (24-48) Monocytes (%) (Auto) 7 % (0-9) Eosinophils (%) (Auto) 2 % (0-3) Basophils (%) (Auto) 1 % (0-3) Neutrophils # (Auto) 2.4 x10^3uL (1.8-7.7) Lymphocytes # (Auto) 1.7 x10^3/uL (1.0-4.8) Monocytes # (Auto) 0.3 x10^3/uL (0.0-1.1) Eosinophils # (Auto) 0.1 x10^3/uL (0.0-0.7) Basophils # (Auto) 0.0 x10^3/uL (0.0-0.2) Sodium Level 137 mmol/L (136-145) Potassium Level 4.3 mmol/L (3.5-5.1) Chloride Level 101 mmol/L (98-107) Carbon Dioxide Level 28 mmol/L (21-32) Anion Gap 8 (6-14) Blood Urea Nitrogen 7 mg/dL (7-20) Creatinine 0.7 mg/dL (0.6-1.0) Estimated GFR (Cockcroft-Gault) 90.9 BUN/Creatinine Ratio 10 (6-20) Glucose Level 128 mg/dL (70-99) H Calcium Level 9.0 mg/dL (8.5-10.1) Total Bilirubin 0.3 mg/dL (0.2-1.0) Aspartate Amino Transferase (AST) 48 U/L (15-37) H Alanine Aminotransferase (ALT) 51 U/L (14-59) Alkaline Phosphatase 97 U/L (46-116) Total Protein 6.6 g/dL (6.4-8.2) Albumin 3.4 g/dL (3.4-5.0) Albumin/Globulin Ratio 1.1 (1.0-1.7) Serum Test, Qualitative Negative (NEG) Laboratory Tests 07/18/17 19:55 Laboratory Tests 07/18/17 19:55 EKG EKG [] Radiology/Procedures Radiology/Procedures [Pelvic ultrasound: Left ovary visualized with CT abdomen pelvis: No acute abdominal or pelvic findings per radiology report. Demonstrates normal blood flow. Nonvisualization of right ovary per radiology report] Course & Med Decision Making Course & Med Decision Making Pertinent Labs and Imaging studies reviewed. (See chart for details) [Patient was nondescript pelvic and flank pain. Lab work unremarkable. CT unremarkable. Ultrasound unable to evaluate old while in the emergency department. Patient has previous tubal ligation. test is negative. Wi' ll continue supportive treatment with instructions follow-up with patient's PCP and/or trying mechanical lead. Return precautions reviewed. Patient verbalizes understanding agreement discharge instructions prior to departure.] Dragon Disclaimer Dragon Disclaimer This electronic medical record was generated, in whole or in part, using a voice recognition dictation system. Departure Departure Disposition: 01 HOME, SELF-CARE Condition: STABLE Referrals: HAYLIE LERNER (PCP) ORAL LAUREANO DO Jul 18, 2017 19:23
--- NOTE | 2017-07-18 19:58 | RAD ---
EXAM: Pelvic sonogram. HISTORY: Pelvic pain. TECHNIQUE: Transabdominal and transvaginal sonographic imaging of the pelvis was performed. COMPARISON: CT dated 04/21/2017. FINDINGS: The exam is limited due to body habitus and bowel gas. The uterus measures 7.8 x 4.3 x 3.5 cm. The endometrial stripe measures 5.3 mm in thickness. The right ovary is not seen. The left ovary measures 2.9 x 1.6 x 1.5 cm and demonstrates normal blood flow. There is a cluster of cystic lesions within the cervix, likely due to multiple nabothian cysts or a complex nabothian cyst. IMPRESSION: 1. Nonvisualization of the right ovary. 2. Suspected cluster of nabothian cysts or complex nabothian cyst within the cervix. Electronically signed by: Jazlyn Hernandez MD (07/18/2017 7:54 PM) [facility]
[2017-07-18 20:04] LABS: BASO % 1 % (0-3); EOS % 2 % (0-3); HEMATOCRIT 32.5 % (36.0-47.0); HEMOGLOBIN 10.8 g/dL (12.0-15.5); LYMPH # 1.7 x10^3/uL (1.0-4.8); LYMPH % 38 % (24-48); MEAN CORPUSCULAR HEMOGLOBIN 29 pg (25-35); MEAN CORPUSCULAR HGB CONC 33 g/dL (31-37); MEAN CORPUSCULAR VOLUME 87 fL (79-100); MONO % 7 % (0-9); NEUT % 52 % (31-73); PLATELET COUNT 176 x10^3/uL (140-400); RED BLOOD COUNT 3.73 x10^6/uL (3.50-5.40); WHITE BLOOD COUNT 4.6 x10^3/uL (4.0-11.0)
[2017-07-18 20:22] LABS: CREATININE 0.7 mg/dL (0.6-1.0); GFR 90.9; NEG OBC SER NEG; POS OBC SER POS; POTASSIUM 4.3 mmol/L (3.5-5.1)
[2017-07-18 20:28] LABS: ALBUMIN 3.4 g/dL (3.4-5.0); ALBUMIN/GLOBULIN RATIO 1.1 (1.0-1.7); TOTAL BILIRUBIN 0.3 mg/dL (0.2-1.0); TOTAL PROTEIN 6.6 g/dL (6.4-8.2)
[2017-07-18] MEDS ORDERED: MORPHINE SULFATE 10 MG/ML VIAL. IV ONE (20:45)
[2017-07-18] MEDS ORDERED: IOHEXOL 300 MG/ML 75 ML VIAL IV ONE (21:00)
[2017-07-18] MEDS ORDERED: CONTRAST GIVEN MC PRN (21:00)
--- NOTE | 2017-07-18 22:46 | RAD ---
EXAM: Abdomen and pelvis CT without intravenous contrast. HISTORY: Right lower quadrant pain. TECHNIQUE: Computed tomographic images of the abdomen and pelvis were obtained without contrast. Multiplanar reformatting was performed. Contrast could not be administered due to inadequate venous access. *One or more of the following individualized dose reduction techniques were utilized for this examination: 1. Automated exposure control. 2. Adjustment of the mA and/or kV according to patient size. 3. Use of iterative reconstruction technique. COMPARISON: 05/11/2017 and 04/21/2017. FINDINGS: Evaluation of the lower thorax is unremarkable. The liver is upper normal in size. No focal hepatic lesion is seen. The gallbladder is surgically absent. There is stable common bile duct dilatation likely due to reservoir effect status post cholecystectomy. The pancreas, spleen and adrenal glands are unremarkable. The right kidney is unremarkable. There is a punctate stone within the lower pole the left kidney, best seen on coronal reconstructed images. The appendix is likely surgically absent. The bladder is mildly distended. The uterus and adnexal regions are unremarkable. There is moderate colonic stool. There is no evidence of bowel obstruction. There is no lymphadenopathy. There is no suspicious osseous lesion. IMPRESSION: 1. No acute abdominal or pelvic finding. 2. Punctate nonobstructing left renal stone. 3. Stable common bile duct dilatation likely due to reservoir effect status post cholecystectomy. Electronically signed by: Jazlyn Hernandez MD (07/18/2017 10:42 PM) [facility]
[2017-07-18] MEDS ORDERED: oxyCODONE/APAP 5/325 1 TAB TABLET PO ONE (23:00)
[2017-07-18 23:47] VITALS: BP 172/86
== END 2017-07-18 23:58 | disposition home or self-care (01) ==
LOC: ER 17:23
DX: R10.31 Right lower quadrant pain (principal); M54.5 Low back pain; E11.9 Type 2 diabetes mellitus without complications; I10 Essential (primary) hypertension; G43.909 Migraine, unspecified, not intractable, without status migrainosus; K21.9 Gastro-esophageal reflux disease without esophagitis; F32.9 Major depressive disorder, single episode, unspecified; Z87.442 Personal history of urinary calculi; Z90.49 Acquired absence of other specified parts of digestive tract; Z98.51 Tubal ligation status; Z98.890 Other specified postprocedural states; Z88.1 Allergy status to other antibiotic agents; Z88.8 Allergy status to other drugs, medicaments and biological substances
CPT/HCPCS: 36415; 74176; 76856; 80053; 81001; 81025; 84703; 85025; 96374; 96375; 99285; J2270; J2405; J3010

== ENCOUNTER 2017-07-22 21:44 | Emergency (ER) | payer BC ==
[~2017-07-22] VITALS: Ht 170.2 cm; Wt 117.9 kg
[2017-07-22 21:56] VITALS: BP 153/96
[2017-07-22 22:28] LABS: BASO % 1 % (0-3); EOS % 2 % (0-3); HEMATOCRIT 37.6 % (36.0-47.0); HEMOGLOBIN 12.2 g/dL (12.0-15.5); LYMPH # 2.1 x10^3/uL (1.0-4.8); LYMPH % 32 % (24-48); MEAN CORPUSCULAR HEMOGLOBIN 29 pg (25-35); MEAN CORPUSCULAR HGB CONC 33 g/dL (31-37); MEAN CORPUSCULAR VOLUME 88 fL (79-100); MONO % 7 % (0-9); NEUT % 59 % (31-73); PLATELET COUNT 237 x10^3/uL (140-400); RED BLOOD COUNT 4.29 x10^6/uL (3.50-5.40); RED CELL DISTRIBUTION WIDTH 14.4 % (11.5-14.5); WHITE BLOOD COUNT 6.6 x10^3/uL (4.0-11.0)
[2017-07-22] MEDS ORDERED: IV NORMAL SALINE 1000ML BAG 1,000 ML IV SCH (22:30)
[2017-07-22] MEDS ORDERED: ONDANSETRON PF 4 MG/2 ML VIAL. IV ONE (22:30)
[2017-07-22 22:32] LABS: BILIRUBIN,URINE NEGATIVE (NEG); GLUCOSE,URINE 250 mg/dL (NEG); NITRITE,URINE NEGATIVE (NEG); PH,URINE 6.5; PROTEIN,URINE NEGATIVE (NEG-TRACE); UROBILINOGEN,URINE 0.2 mg/dL (0.2 mg/dL)
--- NOTE | 2017-07-22 22:37 | PHYS DOC ---
Past Medical History Past Medical History: Anxiety, Depression, Diabetes-Type II, GERD, Hypertension , Kidney Stone, Migraines, Other Additional Past Medical Histor: Borderline Personality Disorder Past Surgical History: Appendectomy, Cholecystectomy, , Tonsillectomy , Tubal ligation, Other Additional Past Surgical Histo: Colonoscopy,Sinus tumor removed Alcohol Use: None Drug Use: None Adult General Chief Complaint Chief Complaint: ABDOMINAL PAIN HPI HPI Patient is a 42 year old female who presents with complaint of right-sided abdominal pain. Patient states that her symptoms have been present over the past 5 days. The patient was seen in the emergency department on July 18, 2017. Patient underwent CT imaging and ultrasound imaging that did not show conclusive evidence for the cause of patient's pain. The patient was discharged on medications to continue pain management. Patient states initially her symptoms improved, however they acutely worsened earlier this evening. Patient rates her pain as 7 out of 10. Patient denies any associated fever, vomiting, or abnormal vaginal bleeding. The patient was told to follow up with a solid tire tuber machine operator after her last visit, however she has not been able to see the solid tire tuber machine operator since her last visit. Review of Systems Review of Systems Constitutional: Denies fever or chills [] Eyes: Denies change in visual acuity, redness, or eye pain [] HENT: Denies nasal congestion or sore throat [] Respiratory: Denies cough or shortness of breath [] Cardiovascular: Denies chest pain or edema[] GI: Abdominal pain, denies nausea, vomiting, bloody stools or diarrhea [] : Denies dysuria or hematuria [] Musculoskeletal: Denies back pain or joint pain [] Integument: Denies rash or skin lesions [] Neurologic: Denies headache, focal weakness or sensory changes [] Current Medications Current Medications Current Medications Medications (Trade) Dose Ordered Sig/Zenaida Start Time Stop Time Status Last Admin Dose Admin Morphine Sulfate 4 mg PRN Q15MIN PRN 07/22/17 22:30 07/23/17 22:29 07/22/17 23:11 4 MG Ondansetron HCl (Zofran) 4 mg 1X ONCE 07/22/17 22:30 07/22/17 22:31 DC 07/22/17 22:40 4 MG Sodium Chloride 1,000 ml @ 1,000 mls/hr Q1H 07/22/17 22:30 07/22/17 23:29 DC 07/22/17 22:40 1,000 MLS/HR Allergies Allergies Allergies Coded Allergies Type Severity Reaction Last Updated Verified Nitrofurantoin Macrocrystal Allergy Intermediate hives 12/19/16 Yes eletriptan HBr Allergy Intermediate "Heart races" 12/19/16 Yes metoclopramide HCl Allergy Intermediate rash 12/19/16 Yes nalbuphine HCl Allergy Intermediate itch 12/19/16 Yes nitrofurantoin Allergy Intermediate hives 12/19/16 Yes tobramycin Allergy Unknown swelling - lips, eyes 04/21/17 Yes prochlorperazine edisylate Adverse Reaction Intermediate "Shakes" 12/19/16 Yes prochlorperazine maleate Adverse Reaction Intermediate "Shakes" 12/19/16 Yes Physical Exam Physical Exam Constitutional: Alert, afebrile, appears in moderate discomfort. [] HENT: Normocephalic, atraumatic, bilateral external ears normal, oropharynx moist, no oral exudates, nose normal. [] Eyes: PERRLA, EOMI, conjunctiva normal, no discharge. [] Neck: Normal range of motion, no tenderness, supple, no stridor. [] Cardiovascular:Heart rate regular rhythm, no murmur [] Lungs & Thorax: Bilateral breath sounds clear to auscultation [] Abdomen: Bowel sounds normal, soft, right lower quadrant and suprapubic tenderness to palpation with mild guarding, no rebound tenderness, no masses, no pulsatile masses. [] Skin: Warm, dry, no erythema, no rash. [] Back: No tenderness, no CVA tenderness. [] Extremities: No tenderness, no cyanosis, no clubbing, ROM intact, no edema. [] Neurologic: Alert and oriented X 3, normal motor function, normal sensory function, no focal deficits noted. [] Current Patient Data Vital Signs Vital Signs Date Time Temp Pulse Resp B/P (MAP) Pulse Ox O2 Delivery O2 Flow Rate FiO2 07/22/17 21:56 98.3 105 18 153/96 (115) 96 Room Air 98.3 Lab Values Laboratory Tests Test 07/22/17 21:16 07/22/17 22:00 POC Urine HCG, Qualitative Hcg negative (Negative) White Blood Count 6.6 x10^3/uL (4.0-11.0) Red Blood Count 4.29 x10^6/uL (3.50-5.40) Hemoglobin 12.2 g/dL (12.0-15.5) Hematocrit 37.6 % (36.0-47.0) Mean Corpuscular Volume 88 fL (79-100) Mean Corpuscular Hemoglobin 29 pg (25-35) Mean Corpuscular Hemoglobin Concent 33 g/dL (31-37) Red Cell Distribution Width 14.4 % (11.5-14.5) Platelet Count 237 x10^3/uL (140-400) Neutrophils (%) (Auto) 59 % (31-73) Lymphocytes (%) (Auto) 32 % (24-48) Monocytes (%) (Auto) 7 % (0-9) Eosinophils (%) (Auto) 2 % (0-3) Basophils (%) (Auto) 1 % (0-3) Neutrophils # (Auto) 3.9 x10^3uL (1.8-7.7) Lymphocytes # (Auto) 2.1 x10^3/uL (1.0-4.8) Monocytes # (Auto) 0.4 x10^3/uL (0.0-1.1) Eosinophils # (Auto) 0.1 x10^3/uL (0.0-0.7) Basophils # (Auto) 0.0 x10^3/uL (0.0-0.2) Urine Collection Type Unknown Urine Color Yellow Urine Clarity Clear Urine pH 6.5 Urine Specific [place] 1.015 Urine Protein Negative mg/dL (NEG-TRACE) Urine Glucose (UA) 250 mg/dL (NEG) Urine Ketones (Stick) Negative mg/dL (NEG) Urine Blood Negative (NEG) Urine Nitrite Negative (NEG) Urine Bilirubin Negative (NEG) Urine Urobilinogen Dipstick 0.2 mg/dL (0.2 mg/dL) Urine Leukocyte Esterase Negative (NEG) Urine RBC 0 /HPF (0-2) Urine WBC 0 /HPF (0-4) Urine Squamous Epithelial Cells Many /LPF Urine Bacteria Few /HPF (0-FEW) Urine Hyaline Casts Few /HPF Urine Mucus Marked /LPF Sodium Level 138 mmol/L (136-145) Potassium Level 4.5 mmol/L (3.5-5.1) Chloride Level 100 mmol/L (98-107) Carbon Dioxide Level 26 mmol/L (21-32) Anion Gap 12 (6-14) Blood Urea Nitrogen 7 mg/dL (7-20) Creatinine 0.8 mg/dL (0.6-1.0) Estimated GFR (Cockcroft-Gault) 77.9 BUN/Creatinine Ratio 9 (6-20) Glucose Level 269 mg/dL (70-99) H Calcium Level 9.1 mg/dL (8.5-10.1) Total Bilirubin 0.2 mg/dL (0.2-1.0) Aspartate Amino Transferase (AST) 43 U/L (15-37) H Alanine Aminotransferase (ALT) 49 U/L (14-59) Alkaline Phosphatase 116 U/L (46-116) Total Protein 7.1 g/dL (6.4-8.2) Albumin 3.9 g/dL (3.4-5.0) Albumin/Globulin Ratio 1.2 (1.0-1.7) Lipase 170 U/L (73-393) Laboratory Tests 07/22/17 22:00 Laboratory Tests 07/22/17 22:00 Microbiology 07/22/17 Wet Prep - Final, Complete EKG EKG Not performed[] Radiology/Procedures Radiology/Procedures [facility] [address] [place] [address] IMAGING REPORT Signed PATIENT: MILEY GUAJARDO ACCOUNT: [id number] : 1975 LOCATION: ER AGE: 42 SEX: F EXAM STATUS: REG ER ORD. PHYSICIAN: RUBEN BERGER MD REASON: right adnexal pain, right ovary not visualized on previous study PROCEDURE: PELVIS W/TV INDICATION: intermittent rlq pain x 1 months COMPARISON: July 18, 2017 TECHNIQUE: Grayscale and color ultrasound images uterus and adnexa. Transabdominal and transvaginal images obtained. FINDINGS: Uterus: 86 x 45 x 45 mm. Endometrial Stripe: 4 mm. Right Ovary: 22 x 21 x 14 mm. Left Ovary: 21 x 16 x 12 mm. Vascular flow identified to bilateral ovaries. Within the lower uterine segment there is some prominence of the endometrial stripe measuring up to approximately 7 mm with some cystic foci in the region. IMPRESSION: 1. Vascular flow seen to the ovaries. 2. Repeat demonstration of clustered cystic appearing structures at lower uterine segment. Could be from causes such as nabothian cysts although some degree of complex fluid within the endometrial stripe is also possible. Follow-up could be obtained to ensure that this does not increase in severity. Electronically signed by: Vika Ramirez MD (07/22/2017 11:38 PM) [facility] DICTATED and SIGNED BY: VIKA RAMIREZ MD DATE: 07/22/17 0069 CC: RUBEN BERGER MD; HAYLIE LERNER ~ [] Course & Med Decision Making Course & Med Decision Making Pertinent Labs and Imaging studies reviewed. (See chart for details) Patient was given morphine, Zofran, and IV fluids in the emergency department. The patient's ultrasound imaging showed normal blood flow to the right ovary. I consulted Dr. Avendaño. After speaking with him regarding the case and findings, he recommended that the patient be placed on oral lateral and Cipro for treatment of possible endometritis. He recommended follow-up in his clinic in the next 3- 5 days for reevaluation. The patient was advised of this and was in agreement with treatment plan. Patient discharged with prescriptions for Soddy Daisy, Flagyl, and Cipro. Patient was given her first doses of Flagyl and Cipro in the emergency department. Advised return emergency department for any worsening symptoms. Patient voiced understanding and in agreement with treatment plan. Dragon Disclaimer Dragon Disclaimer This electronic medical record was generated, in whole or in part, using a voice recognition dictation system. Departure Departure Impression: Primary Impression: Pelvic pain Disposition: 01 HOME, SELF-CARE Condition: IMPROVED Referrals: HAYLIE LERNER (PCP) GABRIELA AVENDAÑO MD Patient Instructions: Pelvic Pain, Female Additional Instructions: Follow-up with Dr. Avendaño in 3-5 days for reevaluation. Return to the emergency department for any worsening symptoms. Scripts Ciprofloxacin Hcl (CIPRO) 500 Mg Tablet 1 TAB PO BID, #20 TAB Prov: RUBEN BERGER MD 07/23/17 Metronidazole (FLAGYL) 500 Mg Tablet 500 MG PO TID, #30 TAB Prov: RUBEN BERGER MD 07/23/17 Hydrocodone/Apap 5-325 (NORCO 5-325 TABLET) 1 Each Tablet 1-2 TAB PO Q4-6HRS Y for PAIN, #30 TAB Prov: RUBEN BERGER MD 07/23/17 RUBEN BERGER MD Jul 22, 2017 22:37
[2017-07-22 22:40] LABS: CALCIUM 9.1 mg/dL (8.5-10.1); CREATININE 0.8 mg/dL (0.6-1.0); GFR 77.9; POTASSIUM 4.5 mmol/L (3.5-5.1)
[2017-07-22] MEDS: MORPHINE SULFATE 4 MG/ML DISP.SYRIN. IV/SQ PRN ×2 (22:40→23:11)
[2017-07-22 22:46] LABS: ALBUMIN 3.9 g/dL (3.4-5.0); ALBUMIN/GLOBULIN RATIO 1.2 (1.0-1.7); TOTAL BILIRUBIN 0.2 mg/dL (0.2-1.0); TOTAL PROTEIN 7.1 g/dL (6.4-8.2)
[2017-07-22 22:48] LABS: BACTERIA,URINE FEW /HPF (0-FEW); RBC,URINE 0 /HPF (0-2); SQUAMOUS EPITHELIAL CELL,UR MANY /LPF; WBC,URINE 0 /HPF (0-4)
--- NOTE | 2017-07-22 23:41 | RAD ---
INDICATION: intermittent rlq pain x 1 months COMPARISON: July 18, 2017 TECHNIQUE: Grayscale and color ultrasound images uterus and adnexa. Transabdominal and transvaginal images obtained. FINDINGS: Uterus: 86 x 45 x 45 mm. Endometrial Stripe: 4 mm. Right Ovary: 22 x 21 x 14 mm. Left Ovary: 21 x 16 x 12 mm. Vascular flow identified to bilateral ovaries. Within the lower uterine segment there is some prominence of the endometrial stripe measuring up to approximately 7 mm with some cystic foci in the region. IMPRESSION: 1. Vascular flow seen to the ovaries. 2. Repeat demonstration of clustered cystic appearing structures at lower uterine segment. Could be from causes such as nabothian cysts although some degree of complex fluid within the endometrial stripe is also possible. Follow-up could be obtained to ensure that this does not increase in severity. Electronically signed by: Corey Do MD (07/22/2017 11:38 PM) [facility]
[2017-07-23] MEDS: MORPHINE SULFATE 4 MG/ML DISP.SYRIN. IV/SQ PRN (00:15)
[2017-07-23] MEDS ORDERED: CIPR500T94 PO (00:20)
[2017-07-23] MEDS ORDERED: METR500T PO (00:20)
[2017-07-23] MEDS ORDERED: HYDR-971 PO (00:20)
[2017-07-23] MEDS ORDERED: CIPROFLOXACIN HCL 250 MG TABLET. PO ONE (00:45)
[2017-07-23] MEDS ORDERED: metroNIDAZOLE 500 MG TABLET PO ONE (00:45)
== END 2017-07-23 00:35 | disposition home or self-care (01) ==
LOC: ER 21:44
DX: R10.2 Pelvic and perineal pain (principal); R10.31 Right lower quadrant pain; F41.9 Anxiety disorder, unspecified; F32.9 Major depressive disorder, single episode, unspecified; E11.9 Type 2 diabetes mellitus without complications; K21.9 Gastro-esophageal reflux disease without esophagitis; I10 Essential (primary) hypertension; G43.909 Migraine, unspecified, not intractable, without status migrainosus; Z87.442 Personal history of urinary calculi; Z90.49 Acquired absence of other specified parts of digestive tract; Z88.1 Allergy status to other antibiotic agents; Z88.8 Allergy status to other drugs, medicaments and biological substances; Z98.51 Tubal ligation status
CPT/HCPCS: 36415; 76830; 76856; 80053; 81001; 81025; 83605; 83690; 85025; 87491; 87591; 96361; 96374; 96375; 96376; 99285; J2270; J2405; J7030; Q0111

== ENCOUNTER 2017-07-27 16:08 | Emergency (ER) | payer BC ==
[~2017-07-27] VITALS: Ht 170.2 cm; Wt 122.5 kg
[~2017-07-27 16:08] MED LIST changes: +CIPR500T94 PO; +METR500T PO
[2017-07-27 17:19] LABS: BILIRUBIN,URINE NEGATIVE (NEG); GLUCOSE,URINE NEGATIVE (NEG); NITRITE,URINE NEGATIVE (NEG); PH,URINE 6.5; PROTEIN,URINE NEGATIVE (NEG-TRACE); UROBILINOGEN,URINE 0.2 mg/dL (0.2 mg/dL)
[2017-07-27 17:26] LABS: BACTERIA,URINE 0 /HPF (0-FEW); RBC,URINE 0 /HPF (0-2); SQUAMOUS EPITHELIAL CELL,UR OCC /LPF; WBC,URINE OCC /HPF (0-4)
[2017-07-27 17:30] LABS: BASO % 1 % (0-3); EOS % 3 % (0-3); HEMATOCRIT 31.6 % (36.0-47.0); HEMOGLOBIN 10.5 g/dL (12.0-15.5); LYMPH # 3.1 x10^3/uL (1.0-4.8); LYMPH % 54 % (24-48); MEAN CORPUSCULAR HEMOGLOBIN 29 pg (25-35); MEAN CORPUSCULAR HGB CONC 33 g/dL (31-37); MEAN CORPUSCULAR VOLUME 87 fL (79-100); MONO % 8 % (0-9); NEUT % 35 % (31-73); PLATELET COUNT 187 x10^3/uL (140-400); RED BLOOD COUNT 3.62 x10^6/uL (3.50-5.40); WHITE BLOOD COUNT 5.8 x10^3/uL (4.0-11.0)
[2017-07-27] MEDS ORDERED: KETOROLAC 15 MG/ML VIAL. IV ONE (17:30)
[2017-07-27 17:47] LABS: CALCIUM 8.6 mg/dL (8.5-10.1); CREATININE 0.7 mg/dL (0.6-1.0); GFR 90.9; POTASSIUM 3.9 mmol/L (3.5-5.1)
[2017-07-27 17:53] LABS: ALBUMIN 3.5 g/dL (3.4-5.0); ALBUMIN/GLOBULIN RATIO 1.1 (1.0-1.7); TOTAL BILIRUBIN 0.1 mg/dL (0.2-1.0); TOTAL PROTEIN 6.6 g/dL (6.4-8.2)
[2017-07-27] MEDS: fentaNYL PF VIAL 100 MCG/2 ML VIAL IV PRN ×2 (18:02→18:58)
--- NOTE | 2017-07-27 19:10 | RAD ---
EXAM: PELVIS W/TV HISTORY: Right lower quadrant pain, irregular cycles COMPARISON: July 22, 2017 TECHNIQUE: Transverse and longitudinal sonography of the pelvis is performed utilizing transabdominal and transvaginal transducers. FINDINGS: Transabdominal imaging does not demonstrate adequate visualization of the uterus nor ovaries. No significant free fluid is seen within the pelvis. Transvaginal imaging demonstrates an anteflexed uterus measuring 8.6 x 4.5 x 5.8 cm. Endometrial thickness measures 5 mm. There is some shadowing through the uterus without complete visualization of the myometrium. No significant abnormality is seen. Cystic structures are seen within the region of the cervix, may represent nabothian cysts. This is unchanged from the recent exam. The right ovary is visualized measuring 3.3 x 1.8 x 1.5 cm, with internal blood flow documented. Dominant follicle versus small cyst present within the right ovary. No right adnexal masses seen. The left ovary is difficult the visualized appearing posterior to the uterus, measuring 2.5 x 1.8 x 2.2 cm. Blood flow is difficult to obtain within the left ovary, may be secondary to its posterior positioning. No left adnexal masses seen. No free fluid is seen within the cul-de-sac. IMPRESSION: 1. Right ovary well visualized with blood flow documented. The left ovary is difficult to visualize, more posterior in positioning, with blood flow difficult to obtain. No adnexal mass is seen bilaterally. 2. Endometrial thickness appears normal. Electronically signed by: Jaleesa Conner MD (07/27/2017 7:07 PM) [facility]
[2017-07-27 20:15] VITALS: BP 171/81
--- NOTE | 2017-07-27 20:34 | ED.ADGEN ---
Past Medical History Past Medical History: Anxiety, Depression, Diabetes-Type II, GERD, Hypertension , Kidney Stone, Migraines, Other Additional Past Medical Histor: Borderline Personality Disorder,ENDOMETRIOSIS Past Surgical History: Appendectomy, Cholecystectomy, , Tonsillectomy , Tubal ligation, Other Additional Past Surgical Histo: Colonoscopy,Sinus tumor removed Alcohol Use: None Drug Use: None Adult General Chief Complaint Chief Complaint: ABDOMINAL PAIN HPI HPI Patient is a 42 year old him in, history of type 2 diabetes mellitus, hypertension, abdominal pain who is currently being evaluated for possible endometriosis, borderline personality disorder, who presents the emergency department complaint of right sided abdominal pain. Patient states that she's been evaluated for this several times both in the emergency department with her primary care provider, and is currently awaiting evaluation by CLIENT SERVICES ACCOUNT MANAGER with concern for possible endometriosis, and states she's been taking her home hydrocodone and muscle relaxers without relief. She states she also felt nauseous today and having some diarrhea. Patient is additionally being treated with ciprofloxacin and Flagyl by her primary care provider. is status post appendectomy and cholecystectomy. Review of Systems Review of Systems Constitutional: Denies fever or chills. [] Eyes: Denies change in visual acuity. [] HENT: Denies nasal congestion or sore throat. [] Respiratory: Denies cough or shortness of breath. [] Cardiovascular: Denies chest pain or edema. [] GI: Denies vomiting, bloody stools or diarrhea. [] Sharp and stabbing lower right-sided abdominal pain and nausea. : Denies dysuria. [] Musculoskeletal: Denies back pain or joint pain. [] Integument: Denies rash. [] Neurologic: Denies headache, focal weakness or sensory changes. [] Endocrine: Denies polyuria or polydipsia. [] Lymphatic: Denies swollen glands. [] Psychiatric: Denies depression or anxiety. [] Current Medications Current Medications Current Medications Medications (Trade) Dose Ordered Sig/Zenaida Start Time Stop Time Status Last Admin Dose Admin Fentanyl Citrate (Fentanyl 2ml Vial) 25 mcg PRN Q15MIN PRN 07/27/17 17:30 07/27/17 20:22 DC 07/27/17 18:58 25 MCG Ketorolac Tromethamine (Toradol) 10 mg 1X ONCE 07/27/17 17:30 07/27/17 17:31 DC 07/27/17 18:00 10 MG Allergies Allergies Allergies Coded Allergies Type Severity Reaction Last Updated Verified Nitrofurantoin Macrocrystal Allergy Intermediate hives 12/19/16 Yes eletriptan HBr Allergy Intermediate "Heart races" 12/19/16 Yes metoclopramide HCl Allergy Intermediate rash 12/19/16 Yes nalbuphine HCl Allergy Intermediate itch 12/19/16 Yes nitrofurantoin Allergy Intermediate hives 12/19/16 Yes tobramycin Allergy Unknown swelling - lips, eyes 04/21/17 Yes prochlorperazine edisylate Adverse Reaction Intermediate "Shakes" 12/19/16 Yes prochlorperazine maleate Adverse Reaction Intermediate "Shakes" 12/19/16 Yes Physical Exam Physical Exam Constitutional: Well developed, well nourished, no acute distress, non-toxic appearance. [] HENT: Normocephalic, atraumatic, bilateral external ears normal, oropharynx moist, no oral exudates, nose normal. [] Eyes: PERRLA, EOMI, conjunctiva normal, no discharge. [] Neck: Normal range of motion, no tenderness, supple, no stridor. [] Cardiovascular:Heart rate regular rhythm, no murmur [] Lungs & Thorax: Bilateral breath sounds clear to auscultation [] Abdomen: Bowel sounds normal, soft, no tenderness, no masses, no pulsatile masses. [] Skin: Warm, dry, no erythema, no rash. [] Back: No tenderness, no CVA tenderness. [] Extremities: No tenderness, no cyanosis, no clubbing, ROM intact, no edema. [] Neurologic: Alert and oriented X 3, normal motor function, normal sensory function, no focal deficits noted. [] Psychologic: Affect normal, judgement normal, mood normal. [] Current Patient Data Vital Signs Vital Signs Date Time Temp Pulse Resp B/P (MAP) Pulse Ox O2 Delivery O2 Flow Rate FiO2 07/27/17 20:15 61 16 171/81 (111) 97 Room Air 07/27/17 16:53 98.2 98.2 Lab Values Laboratory Tests Test 07/27/17 16:10 07/27/17 16:45 07/27/17 17:20 POC Urine HCG, Qualitative Hcg negative (Negative) Urine Color Yellow Urine Clarity Cloudy Urine pH 6.5 Urine Specific Ashby 1.010 Urine Protein Negative mg/dL (NEG-TRACE) Urine Glucose (UA) Negative mg/dL (NEG) Urine Ketones (Stick) Negative mg/dL (NEG) Urine Blood Negative (NEG) Urine Nitrite Negative (NEG) Urine Bilirubin Negative (NEG) Urine Urobilinogen Dipstick 0.2 mg/dL (0.2 mg/dL) Urine Leukocyte Esterase Trace (NEG) Urine RBC 0 /HPF (0-2) Urine WBC Occ /HPF (0-4) Urine Squamous Epithelial Cells Occ /LPF Urine Bacteria 0 /HPF (0-FEW) Urine Mucus Slight /LPF White Blood Count 5.8 x10^3/uL (4.0-11.0) Red Blood Count 3.62 x10^6/uL (3.50-5.40) Hemoglobin 10.5 g/dL (12.0-15.5) L Hematocrit 31.6 % (36.0-47.0) L Mean Corpuscular Volume 87 fL (79-100) Mean Corpuscular Hemoglobin 29 pg (25-35) Mean Corpuscular Hemoglobin Concent 33 g/dL (31-37) Red Cell Distribution Width 14.0 % (11.5-14.5) Platelet Count 187 x10^3/uL (140-400) Neutrophils (%) (Auto) 35 % (31-73) Lymphocytes (%) (Auto) 54 % (24-48) H Monocytes (%) (Auto) 8 % (0-9) Eosinophils (%) (Auto) 3 % (0-3) Basophils (%) (Auto) 1 % (0-3) Neutrophils # (Auto) 2.0 x10^3uL (1.8-7.7) Lymphocytes # (Auto) 3.1 x10^3/uL (1.0-4.8) Monocytes # (Auto) 0.4 x10^3/uL (0.0-1.1) Eosinophils # (Auto) 0.1 x10^3/uL (0.0-0.7) Basophils # (Auto) 0.0 x10^3/uL (0.0-0.2) Sodium Level 131 mmol/L (136-145) L Potassium Level 3.9 mmol/L (3.5-5.1) Chloride Level 96 mmol/L (98-107) L Carbon Dioxide Level 30 mmol/L (21-32) Anion Gap 5 (6-14) L Blood Urea Nitrogen 5 mg/dL (7-20) L Creatinine 0.7 mg/dL (0.6-1.0) Estimated GFR (Cockcroft-Gault) 90.9 BUN/Creatinine Ratio 7 (6-20) Glucose Level 204 mg/dL (70-99) H Calcium Level 8.6 mg/dL (8.5-10.1) Total Bilirubin 0.1 mg/dL (0.2-1.0) L Aspartate Amino Transferase (AST) 29 U/L (15-37) Alanine Aminotransferase (ALT) 36 U/L (14-59) Alkaline Phosphatase 101 U/L (46-116) Total Protein 6.6 g/dL (6.4-8.2) Albumin 3.5 g/dL (3.4-5.0) Albumin/Globulin Ratio 1.1 (1.0-1.7) Lipase 122 U/L (73-393) Laboratory Tests 07/27/17 17:20 Laboratory Tests 07/27/17 17:20 EKG EKG Not indicated.[] Radiology/Procedures Radiology/Procedures [][facility] [address] [place], [place] [id number] IMAGING REPORT Signed PATIENT: MILEY GUAJARDO ACCOUNT: [id number] : 1975 LOCATION: ER AGE: 42 SEX: F EXAM STATUS: REG ER ORD. PHYSICIAN: HANH COHEN DO REASON: Worsening R side pain PROCEDURE: PELVIS W/TV EXAM: PELVIS W/TV HISTORY: Right lower quadrant pain, irregular cycles COMPARISON: July 22, 2017 TECHNIQUE: Transverse and longitudinal sonography of the pelvis is performed utilizing transabdominal and transvaginal transducers. FINDINGS: Transabdominal imaging does not demonstrate adequate visualization of the uterus nor ovaries. No significant free fluid is seen within the pelvis. Transvaginal imaging demonstrates an anteflexed uterus measuring 8.6 x 4.5 x 5.8 cm. Endometrial thickness measures 5 mm. There is some shadowing through the uterus without complete visualization of the myometrium. No significant abnormality is seen. Cystic structures are seen within the region of the cervix, may represent nabothian cysts. This is unchanged from the recent exam. The right ovary is visualized measuring 3.3 x 1.8 x 1.5 cm, with internal blood flow documented. Dominant follicle versus small cyst present within the right ovary. No right adnexal masses seen. The left ovary is difficult the visualized appearing posterior to the uterus, measuring 2.5 x 1.8 x 2.2 cm. Blood flow is difficult to obtain within the left ovary, may be secondary to its posterior positioning. No left adnexal masses seen. No free fluid is seen within the cul-de-sac. IMPRESSION: 1. Right ovary well visualized with blood flow documented. The left ovary is difficult to visualize, more posterior in positioning, with blood flow difficult to obtain. No adnexal mass is seen bilaterally. 2. Endometrial thickness appears normal. Electronically signed by: Jana Conner MD (07/27/2017 7:07 PM) [facility] DICTATED and SIGNED BY: JANA CONNER MD DATE: 07/27/171900 CC: HAYLIE LERNER; HANH COHEN DO ~ Impressions: [facility] [address] [place] [address] IMAGING REPORT Signed PATIENT: MILEY GUAJARDO ACCOUNT: [id number] : 1975 LOCATION: ER AGE: 42 SEX: F EXAM STATUS: REG ER ORD. PHYSICIAN: HANH COHEN DO REASON: Worsening R side pain PROCEDURE: PELVIS W/TV EXAM: PELVIS W/TV HISTORY: Right lower quadrant pain, irregular cycles COMPARISON: July 22, 2017 TECHNIQUE: Transverse and longitudinal sonography of the pelvis is performed utilizing transabdominal and transvaginal transducers. FINDINGS: Transabdominal imaging does not demonstrate adequate visualization of the uterus nor ovaries. No significant free fluid is seen within the pelvis. Transvaginal imaging demonstrates an anteflexed uterus measuring 8.6 x 4.5 x 5.8 cm. Endometrial thickness measures 5 mm. There is some shadowing through the uterus without complete visualization of the myometrium. No significant abnormality is seen. Cystic structures are seen within the region of the cervix, may represent nabothian cysts. This is unchanged from the recent exam. The right ovary is visualized measuring 3.3 x 1.8 x 1.5 cm, with internal blood flow documented. Dominant follicle versus small cyst present within the right ovary. No right adnexal masses seen. The left ovary is difficult the visualized appearing posterior to the uterus, measuring 2.5 x 1.8 x 2.2 cm. Blood flow is difficult to obtain within the left ovary, may be secondary to its posterior positioning. No left adnexal masses seen. No free fluid is seen within the cul-de-sac. IMPRESSION: 1. Right ovary well visualized with blood flow documented. The left ovary is difficult to visualize, more posterior in positioning, with blood flow difficult to obtain. No adnexal mass is seen bilaterally. 2. Endometrial thickness appears normal. Electronically signed by: Jana Conner MD (07/27/2017 7:07 PM) [facility] DICTATED and SIGNED BY: JANA CONNER MD DATE: 07/27/171900 CC: HAYLIE LERNER; HANH COHEN DO ~ Course & Med Decision Making Course & Med Decision Making Pertinent Labs and Imaging studies reviewed. (See chart for details) Discussed with patient that with a evaluation for antibiosis, there is not much we did offer in the emergency department for additional evaluation, although with her complaints of worsening pain, and nausea, will obtain a repeat ultrasound to rule out any acute alcohol abnormalities, laboratory studies. Patient with a sodium of 132 corrected, with a glucose of 204, states she has been having diarrhea, potassium is 3.9, patient is tolerating by mouth in the ED without issue, no ketones or other normalities identified in the urine. Repeat ultrasound does not reveal any concerning findings at this time. I did discuss the signs and patient has received several doses of medication in the ED is resting more comfortably. Again reiterated that patient is best served by following up with the CLIENT SERVICES ACCOUNT MANAGER for additional evaluation, which may include biopsy or potentially hysterectomy she continues to have issues. Patient states that she will continue to use the antibiotics as directed, along with her pain medications, has adequate pain medications at home, will stay well-hydrated, and take other medications as directed, return to the ED if any new or concerning symptoms discussed developed, and will follow-up with her primary care provider and CLIENT SERVICES ACCOUNT MANAGER as discussed. Discharged home in stable condition with plan as above. Dragon Disclaimer Dragon Disclaimer This electronic medical record was generated, in whole or in part, using a voice recognition dictation system. Departure Impression: Primary Impression: Abdominal pain Additional Impressions: Diarrhea Hyponatremia Disposition: 01 HOME, SELF-CARE Condition: IMPROVED Problem Qualifiers HANH COHEN DO Jul 27, 2017 20:34
== END 2017-07-27 20:15 | disposition home or self-care (01) ==
LOC: ER 16:08
DX: R10.31 Right lower quadrant pain (principal); E11.9 Type 2 diabetes mellitus without complications; E87.1 Hypo-osmolality and hyponatremia; I10 Essential (primary) hypertension; K21.9 Gastro-esophageal reflux disease without esophagitis; Z87.442 Personal history of urinary calculi; Z90.49 Acquired absence of other specified parts of digestive tract; G43.909 Migraine, unspecified, not intractable, without status migrainosus; Z98.51 Tubal ligation status; Z88.1 Allergy status to other antibiotic agents; Z88.6 Allergy status to analgesic agent; Z88.8 Allergy status to other drugs, medicaments and biological substances
CPT/HCPCS: 36415; 76830; 76856; 80053; 81001; 81025; 83690; 85025; 96374; 96375; 96376; 99285; J1885; J3010

== ENCOUNTER 2017-07-31 20:26 | Emergency (ER) | payer BC ==
[~2017-07-31] VITALS: Ht 170.2 cm; Wt 122.5 kg
[2017-07-31 20:31] VITALS: BP 133/76
[2017-07-31] MEDS ORDERED: NAPROXEN 500 MG TABLET PO STA (20:56)
[2017-07-31] MEDS ORDERED: HYDROcodone/APAP 5/325MG 1 TAB TABLET PO ONE (21:00)
--- NOTE | 2017-07-31 21:21 | PHYS DOC ---
Past Medical History Past Medical History: Anxiety, Depression, Diabetes-Type II, GERD, Hypertension , Kidney Stone, Migraines, Other Additional Past Medical Histor: Borderline Personality Disorder,ENDOMETRIOSIS Past Surgical History: Appendectomy, Cholecystectomy, , Tonsillectomy , Tubal ligation, Other Additional Past Surgical Histo: Colonoscopy,Sinus tumor removed Alcohol Use: None Drug Use: None Adult General Chief Complaint Chief Complaint: WRIST PAIN HPI HPI Patient is a 42 year old female with history of diabetes hypertension kidney stones among other things who presents today with moderate right lateral wrist pain and lateral hand pain that began this evening when she fell. She states she missed one step hitting her right hand and wrist on a wall. Patient denies any loss of consciousness. Review of Systems Review of Systems Constitutional: Denies fever or chills [] Musculoskeletal: right lateral wrist pain and lateral hand pain Integument: Denies rash or skin lesions [] Neurologic: Denies headache, focal weakness or sensory changes [] Current Medications Current Medications Current Medications Medications (Trade) Dose Ordered Sig/Zenaida Start Time Stop Time Status Last Admin Dose Admin Acetaminophen/ Hydrocodone Bitart (Lortab 5/325) 1 tab 1X ONCE 07/31/17 21:00 07/31/17 21:01 DC 07/31/17 21:02 1 TAB Naproxen (Naprosyn) 500 mg 1X STAT 07/31/17 20:56 07/31/17 20:57 DC 07/31/17 21:02 500 MG Allergies Allergies Allergies Coded Allergies Type Severity Reaction Last Updated Verified Nitrofurantoin Macrocrystal Allergy Intermediate hives 12/19/16 Yes eletriptan HBr Allergy Intermediate "Heart races" 12/19/16 Yes metoclopramide HCl Allergy Intermediate rash 12/19/16 Yes nalbuphine HCl Allergy Intermediate itch 12/19/16 Yes nitrofurantoin Allergy Intermediate hives 12/19/16 Yes tobramycin Allergy Unknown swelling - lips, eyes 04/21/17 Yes prochlorperazine edisylate Adverse Reaction Intermediate "Shakes" 12/19/16 Yes prochlorperazine maleate Adverse Reaction Intermediate "Shakes" 12/19/16 Yes Physical Exam Physical Exam Constitutional: Well developed, well nourished, no acute distress, non-toxic appearance. [] Skin: Warm, dry, no erythema, no rash. [] Back: No tenderness, no CVA tenderness. [] Extremities: Right wrist and hand with no obvious deformity. Bruising noted on the ulnar styloid of the right wrist with tenderness over the area. Tenderness along the right fifth metacarpal. No scaphoid pain or tenderness. Full range of motion to the right hand and fingers. +2 right radial pulse. Adequate radial medial and ulnar sensation to the right hand. Cap refill less than 2 seconds the right fingers. Neurologic: Alert and oriented X 3, normal motor function, normal sensory function, no focal deficits noted. [] Psychologic: Affect normal, judgement normal, mood normal. [] Current Patient Data Vital Signs Vital Signs Date Time Temp Pulse Resp B/P (MAP) Pulse Ox O2 Delivery O2 Flow Rate FiO2 07/31/17 21:02 16 Room Air 07/31/17 20:31 98.1 99 98 98.1 EKG EKG [] Radiology/Procedures Radiology/Procedures [] Course & Med Decision Making Course & Med Decision Making Pertinent Labs and Imaging studies reviewed. (See chart for details) Patient is in the ED with right wrist and right hand pain after falling. Right hand x-rays interpreted by Dr. Salcido were negative for any acute findings. Velcro splint was placed to the right hand by the ED RN, neurovascular exam is intact. Ice elevation encouraged. Naproxen for pain. Follow-up with orthopedic doctor in one week. Dragon Disclaimer Dragon Disclaimer This electronic medical record was generated, in whole or in part, using a voice recognition dictation system. Departure Departure Impression: Primary Impression: Right wrist sprain Additional Impressions: Sprain of right hand Fall down steps Disposition: 01 HOME, SELF-CARE Condition: STABLE Referrals: HAYLIE LERNER (PCP) RICHARDSON LOCK II, MD Follow-up in one week Patient Instructions: Wrist Sprain with [facility] Additional Instructions: You were seen for right wrist and right hand sprain. Ice and elevate the extremity. Wear the Velcro splint provided as needed and tolerated. Follow-up with the provided orthopedic doctor or your own doctor in one week. Scripts Naproxen (NAPROXEN) 500 Mg Tablet.dr 1 TAB PO BID, #60 TAB 2 Refills Prov: ABRAN VIRAMONTES KATHERINE 07/31/17 Problem Qualifiers Primary Impression: Right wrist sprain Encounter type: initial encounter Qualified Codes: S63.501A - Unspecified sprain of right wrist, initial encounter Additional Impressions: Sprain of right hand Encounter type: initial encounter Qualified Codes: S63.91XA - Sprain of unspecified part of right wrist and hand, initial encounter Fall down steps Encounter type: initial encounter Qualified Codes: W10.8XXA - Fall (on) ( from) other stairs and steps, initial encounter ABRAN VIRAMONTES APRN Jul 31, 2017 21:20
[2017-07-31] MEDS ORDERED: NAPR500T8 PO (21:28)
--- NOTE | 2017-08-01 07:29 | RAD ---
Right hand, 3 views, 07/31/2017: History: Injury, pain There are mild degenerative changes at scattered interphalangeal joints and the first CMC joint. No acute fracture or dislocation is identified. The soft tissues are unremarkable. IMPRESSION: No acute bony abnormality is detected.
== END 2017-07-31 21:33 | disposition home or self-care (01) ==
LOC: ER 20:26
DX: S63.91XA Sprain of unspecified part of right wrist and hand, initial encounter (principal); F41.9 Anxiety disorder, unspecified; F32.9 Major depressive disorder, single episode, unspecified; E11.9 Type 2 diabetes mellitus without complications; K21.9 Gastro-esophageal reflux disease without esophagitis; I10 Essential (primary) hypertension; G43.909 Migraine, unspecified, not intractable, without status migrainosus; Z90.49 Acquired absence of other specified parts of digestive tract; Z88.1 Allergy status to other antibiotic agents; Z88.8 Allergy status to other drugs, medicaments and biological substances; W10.9XXA Fall (on) (from) unspecified stairs and steps, initial encounter; Y93.89 Activity, other specified; Y92.89 Other specified places as the place of occurrence of the external cause; Y99.8 Other external cause status
CPT/HCPCS: 29125; 73130; 99284-25

== ENCOUNTER 2017-08-02 10:13 | Emergency (ER) | payer BC ==
[~2017-08-02 10:13] MED LIST changes: +NAPR500T8 PO
[2017-08-02] MEDS ORDERED: IV NORMAL SALINE 1000ML BAG 1,000 ML IV SCH (10:43)
[2017-08-02] MEDS ORDERED: 0.9 % SODIUM CHLORIDE 10 ML DISP.SYRIN. IV PRN (10:45)
--- NOTE | 2017-08-02 11:03 | PHYS DOC ---
Past Medical History Past Medical History: Anxiety, Depression, Diabetes-Type II, GERD, Hypertension , Kidney Stone, Migraines, Other Additional Past Medical Histor: Borderline Personality Disorder,ENDOMETRIOSIS Past Surgical History: Appendectomy, Cholecystectomy, , Tonsillectomy , Tubal ligation, Other Additional Past Surgical Histo: Colonoscopy,Sinus tumor removed Alcohol Use: None Drug Use: None Adult General Chief Complaint Chief Complaint: ABDOMINAL PAIN HPI HPI A she is a pleasant 42-year-old female with a history of prior cholecystectomy, appendectomy and prior and tubal ligation who presents with intermittent lower abdominal pain on the right side that began earlier today. He is cause intractable nausea and vomiting. She's had 6 episodes of vomiting nonbilious nonbloody since this morning with continuous belly pain. She's been here before for an evaluation of this abdominal pain as well as her dysfunctional uterine bleeding for which she is an ultrasound and CT of the abdomen pelvis. She supposedly has a follow-up with [facility] later this month for exporter laparotomy looking for endometriosis. Her main complaint today is abdominal pain is unrelenting described as 8 of 10 worse with range of motion and movement of the abdominal wall. However patient denies any prior diarrhea or trauma to her abdomen. She denies any abdominal pain with urination or bleeding from her vagina. She denies being IAcute pancreatitis. Appendicitis. Acute hepatitis. Peptic ulcer disease. Nonulcer dyspepsia. Irritable bowel disease. Functional gallbladder disorder. Sphincter of Oddi dysfunction. Diseases of the right kidney. Right-sided pneumonia. Xaee-Jkuu-Moxjto syndrome Subhepatic or intraabdominal abscess. Perforated viscus. Cardiac ischemia. Black spider envenomation Review of Systems Review of Systems Constitutional: Denies fever or chills [] Eyes: Denies change in visual acuity, redness, or eye pain [] HENT: Denies nasal congestion or sore throat [] Respiratory: Denies cough or shortness of breath [] Cardiovascular: No additional information not addressed in HPI [] GI: She is primary complaint is abdominal pain with nausea vomiting without diarrhea or constipation. : Denies dysuria or hematuria [] Musculoskeletal: Denies back pain or joint pain [] Integument: Denies rash or skin lesions [] Neurologic: Denies headache, focal weakness or sensory changes [] Endocrine: Denies polyuria or polydipsia [] Current Medications Current Medications Current Medications Medications (Trade) Dose Ordered Sig/Zenaida Start Time Stop Time Status Last Admin Dose Admin Hydromorphone HCl (Dilaudid) 1 mg 1X ONCE 08/02/17 12:45 08/02/17 12:46 DC 08/02/17 13:19 1 MG Magnesium Sulfate/ Dextrose 50 ml @ 25 mls/hr 1X ONCE 08/02/17 13:00 08/02/17 14:59 08/02/17 13:24 25 MLS/HR Ondansetron HCl (Zofran) 4 mg 1X ONCE 08/02/17 12:45 08/02/17 12:46 DC 08/02/17 13:18 4 MG Sodium Chloride (Normal Saline Flush) 10 ml QSHIFT PRN 08/02/17 10:45 Allergies Allergies Allergies Coded Allergies Type Severity Reaction Last Updated Verified Nitrofurantoin Macrocrystal Allergy Intermediate hives 12/19/16 Yes eletriptan HBr Allergy Intermediate "Heart races" 12/19/16 Yes metoclopramide HCl Allergy Intermediate rash 12/19/16 Yes nalbuphine HCl Allergy Intermediate itch 12/19/16 Yes nitrofurantoin Allergy Intermediate hives 12/19/16 Yes tobramycin Allergy Unknown swelling - lips, eyes 04/21/17 Yes prochlorperazine edisylate Adverse Reaction Intermediate "Shakes" 12/19/16 Yes prochlorperazine maleate Adverse Reaction Intermediate "Shakes" 12/19/16 Yes Physical Exam Physical Exam The patient's vital signs recorded on the chart patient noted to be very hypertensive Constitutional: Well developed, well nourished, no acute distress, non-toxic appearance. [] HENT: Normocephalic, atraumatic, bilateral external ears normal, oropharynx moist, no oral exudates, nose normal. [] Eyes: PERRLA, EOMI, conjunctiva normal, no discharge. [] Neck: Normal range of motion, no tenderness, supple, no stridor. [] Cardiovascular:Heart rate regular rhythm, no murmur [] Lungs & Thorax: Bilateral breath sounds clear to auscultation [] Abdomen: Bowel sounds normal, soft, patient has tenderness to palpation of the right lower quadrant with no voluntary guarding rebound or organomegaly no masses, no pulsatile masses. [] Skin: Warm, dry, no erythema, no rash. [] Back: No tenderness, no CVA tenderness. [] Extremities: No tenderness, no cyanosis, no clubbing, ROM intact, no edema. [] Neurologic: Alert and oriented X 3, normal motor function, normal sensory function, no focal deficits noted. [] Psychologic: Affect normal, judgement normal, mood normal. [] Current Patient Data Vital Signs Vital Signs Date Time Temp Pulse Resp B/P (MAP) Pulse Ox O2 Delivery O2 Flow Rate FiO2 08/02/17 13:19 16 95 Room Air 08/02/17 10:33 98.5 86 153/85 (107) 98.5 Lab Values Laboratory Tests Test 08/02/17 10:20 08/02/17 10:45 08/02/17 11:33 Urine Collection Type Void Urine Color Yellow Urine Clarity Clear Urine pH 6.5 Urine Specific [place] 1.020 Urine Protein 30 mg/dL (NEG-TRACE) Urine Glucose (UA) Negative mg/dL (NEG) Urine Ketones (Stick) Trace mg/dL (NEG) Urine Blood Negative (NEG) Urine Nitrite Negative (NEG) Urine Bilirubin Negative (NEG) Urine Urobilinogen Dipstick 0.2 mg/dL (0.2 mg/dL) Urine Leukocyte Esterase Negative (NEG) Urine RBC Rare /HPF (0-2) Urine WBC 5-10 /HPF (0-4) Urine Squamous Epithelial Cells Mod /LPF Urine Bacteria Few /HPF (0-FEW) Urine Hyaline Casts Moderate /HPF Urine Mucus Mod /LPF White Blood Count 7.0 x10^3/uL (4.0-11.0) Red Blood Count 4.11 x10^6/uL (3.50-5.40) Hemoglobin 11.8 g/dL (12.0-15.5) L Hematocrit 35.4 % (36.0-47.0) L Mean Corpuscular Volume 86 fL (79-100) Mean Corpuscular Hemoglobin 29 pg (25-35) Mean Corpuscular Hemoglobin Concent 33 g/dL (31-37) Red Cell Distribution Width 13.9 % (11.5-14.5) Platelet Count 212 x10^3/uL (140-400) Neutrophils (%) (Auto) 61 % (31-73) Lymphocytes (%) (Auto) 30 % (24-48) Monocytes (%) (Auto) 7 % (0-9) Eosinophils (%) (Auto) 1 % (0-3) Basophils (%) (Auto) 1 % (0-3) Neutrophils # (Auto) 4.3 x10^3uL (1.8-7.7) Lymphocytes # (Auto) 2.1 x10^3/uL (1.0-4.8) Monocytes # (Auto) 0.5 x10^3/uL (0.0-1.1) Eosinophils # (Auto) 0.1 x10^3/uL (0.0-0.7) Basophils # (Auto) 0.1 x10^3/uL (0.0-0.2) Sodium Level 132 mmol/L (136-145) L Potassium Level 4.1 mmol/L (3.5-5.1) Chloride Level 95 mmol/L (98-107) L Carbon Dioxide Level 28 mmol/L (21-32) Anion Gap 9 (6-14) Blood Urea Nitrogen 5 mg/dL (7-20) L Creatinine 0.8 mg/dL (0.6-1.0) Estimated GFR (Cockcroft-Gault) 77.9 Glucose Level 223 mg/dL (70-99) H Calcium Level 9.4 mg/dL (8.5-10.1) Magnesium Level 1.3 mg/dL (1.8-2.4) L Total Bilirubin 0.2 mg/dL (0.2-1.0) Direct Bilirubin < 0.1 mg/dL (0.0-0.2) Aspartate Amino Transferase (AST) 27 U/L (15-37) Alanine Aminotransferase (ALT) 28 U/L (14-59) Alkaline Phosphatase 104 U/L (46-116) Creatine Kinase 74 U/L (26-192) Creatine Kinase MB (Mass) < 0.5 ng/mL (0.0-3.6) Creatine Kinase MB Relative Index % (0-4) Troponin I Quantitative < 0.017 ng/mL (0.000-0.055) JZ-Tit-D-Type Natriuretic Peptide 455 pg/mL (0-124) H Total Protein 7.0 g/dL (6.4-8.2) Albumin 4.1 g/dL (3.4-5.0) Lipase 186 U/L (73-393) POC Urine HCG, Qualitative Hcg negative (Negative) Laboratory Tests 08/02/17 10:45 Laboratory Tests 08/02/17 10:45 EKG EKG []EKG timed 11:08 AM demonstrates normal sinus rhythm with no asymmetry with changes consistent of ischemia. Patient has a heart rate of 67 which is normal NE interval is 150 which is normal QRS is 70 which is normal QTC is 443 which is normal. EKG read by il Radiology/Procedures Radiology/Procedures [] [address] [place] [address] IMAGING REPORT Signed PATIENT: MILEY GUAJARDO ACCOUNT: [id number] : 1975 LOCATION: ER AGE: 42 SEX: F EXAM STATUS: REG ER ORD. PHYSICIAN: ORAL LAUREANO DO REASON: RLQ pain PROCEDURE: CT ABDOMEN PELVIS WO CONTRAST EXAM: Abdomen and pelvis CT without intravenous contrast. HISTORY: Right lower quadrant pain. TECHNIQUE: Computed tomographic images of the abdomen and pelvis were obtained without contrast. Multiplanar reformatting was performed. Contrast could not be administered due to inadequate venous access. *One or more of the following individualized dose reduction techniques were utilized for this examination: 1. Automated exposure control. 2. Adjustment of the mA and/or kV according to patient size. 3. Use of iterative reconstruction technique. COMPARISON: 05/11/2017 and 04/21/2017. FINDINGS: Evaluation of the lower thorax is unremarkable. The liver is upper normal in size. No focal hepatic lesion is seen. The gallbladder is surgically absent. There is stable common bile duct dilatation likely due to reservoir effect status post cholecystectomy. The pancreas, spleen and adrenal glands are unremarkable. The right kidney is unremarkable. There is a punctate stone within the lower pole the left kidney, best seen on coronal reconstructed images. The appendix is likely surgically absent. The bladder is mildly distended. The uterus and adnexal regions are unremarkable. There is moderate colonic stool. There is no evidence of bowel obstruction. There is no lymphadenopathy. There is no suspicious osseous lesion. IMPRESSION: 1. No acute abdominal or pelvic finding. 2. Punctate nonobstructing left renal stone. 3. Stable common bile duct dilatation likely due to reservoir effect status post cholecystectomy. Electronically signed by: Jazlyn Merrill MD (07/18/2017 10:42 PM) [facility] DICTATED and SIGNED BY: JAZLYN MERRILL MD DATE: 07/18/172236 CC: ORAL LAUREANO DO; HAYLIE LERNER Lissa ~ [facility] [address] [place] [address] IMAGING REPORT Signed PATIENT: MILEY GUAJARDO ACCOUNT: [id number] : 1975 LOCATION: ER AGE: 42 SEX: F EXAM STATUS: REG ER ORD. PHYSICIAN: HANH COHEN DO REASON: Worsening R side pain PROCEDURE: PELVIS W/TV EXAM: PELVIS W/TV HISTORY: Right lower quadrant pain, irregular cycles COMPARISON: July 22, 2017 TECHNIQUE: Transverse and longitudinal sonography of the pelvis is performed utilizing transabdominal and transvaginal transducers. FINDINGS: Transabdominal imaging does not demonstrate adequate visualization of the uterus nor ovaries. No significant free fluid is seen within the pelvis. Transvaginal imaging demonstrates an anteflexed uterus measuring 8.6 x 4.5 x 5.8 cm. Endometrial thickness measures 5 mm. There is some shadowing through the uterus without complete visualization of the myometrium. No significant abnormality is seen. Cystic structures are seen within the region of the cervix, may represent nabothian cysts. This is unchanged from the recent exam. The right ovary is visualized measuring 3.3 x 1.8 x 1.5 cm, with internal blood flow documented. Dominant follicle versus small cyst present within the right ovary. No right adnexal masses seen. The left ovary is difficult the visualized appearing posterior to the uterus, measuring 2.5 x 1.8 x 2.2 cm. Blood flow is difficult to obtain within the left ovary, may be secondary to its posterior positioning. No left adnexal masses seen. No free fluid is seen within the cul-de-sac. IMPRESSION: 1. Right ovary well visualized with blood flow documented. The left ovary is difficult to visualize, more posterior in positioning, with blood flow difficult to obtain. No adnexal mass is seen bilaterally. 2. Endometrial thickness appears normal. Electronically signed by: Jana Conner MD (07/27/2017 7:07 PM) [facility] DICTATED and SIGNED BY: JANA CONNER MD DATE: 07/27/171900 CC: HAYLIE LERNER; HANH COHEN DO ~ Course & Med Decision Making Course & Med Decision Making Pertinent Labs and Imaging studies reviewed. (See chart for details) [] Dragon Disclaimer Dragon Disclaimer This electronic medical record was generated, in whole or in part, using a voice recognition dictation system. Departure Departure Impression: Primary Impression: Abdominal pain Disposition: HOME, SELF-CARE Condition: IMPROVED Referrals: HAYLIE LERNER (PCP) Patient Instructions: Abdominal Pain, Hypomagnesemia, Urinary Tract Infection Additional Instructions: My discharge plan I would advise a follow-up with your primary care doctor to discuss the treatment for your long-term abdominal pain. Follow up: In addition patient is asked to followup with their primary doctor, within a week for followup examination and to address patient's ongoing medical conditions. Because patient does not have a regular medical doctor, the [facility] Resource Sheet will be provided to [facility] care primary care. Patient is advised that in the Emergency Department primary complaints are addressed and only in light of known signs and symptoms. Patient should return immediately to the emergency department if new signs and symptoms develop or patient's condition worsens in any way. At time of discharge patient was in stable condition and had verbalized understanding of the discharge instructions. Scripts Hydrocodone Bit/Acetaminophen (HYDROCODONE-APAP 5-325 ) 1 Each Tablet 1-2 TAB PO PRN Q6HRS Y for PAIN for 5 Days, #10 TAB 0 Refills Prov: NADINE DUMONT MD 08/02/17 Cephalexin (KEFLEX) 500 Mg Capsule 500 MG PO QID for 7 Days, #28 CAP Prov: NADINE DUMONT MD 08/02/17 NADINE DUMONT MD Aug 02, 2017 11:03
[2017-08-02 11:10] LABS: BASO # 0.1 x10^3/uL (0.0-0.2); BASO % 1 % (0-3); EOS % 1 % (0-3); HEMATOCRIT 35.4 % (36.0-47.0); HEMOGLOBIN 11.8 g/dL (12.0-15.5); LYMPH # 2.1 x10^3/uL (1.0-4.8); LYMPH % 30 % (24-48); MEAN CORPUSCULAR HEMOGLOBIN 29 pg (25-35); MEAN CORPUSCULAR HGB CONC 33 g/dL (31-37); MEAN CORPUSCULAR VOLUME 86 fL (79-100); MONO % 7 % (0-9); NEUT % 61 % (31-73); PLATELET COUNT 212 x10^3/uL (140-400); RED BLOOD COUNT 4.11 x10^6/uL (3.50-5.40); RED CELL DISTRIBUTION WIDTH 13.9 % (11.5-14.5)
[2017-08-02 11:11] LABS: ANION GAP 9 (6-14); BLOOD UREA NITROGEN 5 mg/dL (7-20); CALCIUM 9.4 mg/dL (8.5-10.1); CARBON DIOXIDE 28 mmol/L (21-32); CHLORIDE 95 mmol/L (98-107); CREATININE 0.8 mg/dL (0.6-1.0); GFR 77.9; GLUCOSE 223 mg/dL (70-99); POTASSIUM 4.1 mmol/L (3.5-5.1); SODIUM 132 mmol/L (136-145)
[2017-08-02] MEDS ORDERED: ONDANSETRON PF 4 MG/2 ML VIAL. IV ONE ×2 (11:15→12:45)
[2017-08-02] MEDS ORDERED: HYDROmorphone 2 MG/ML VIAL IV ONE ×2 (11:15→12:45)
[2017-08-02 11:16] LABS: ALBUMIN 4.1 g/dL (3.4-5.0); ALK PHOS 104 U/L (46-116); ALT (SGPT) 28 U/L (14-59); AST (SGOT) 27 U/L (15-37); DIRECT BILIRUBIN < 0.1 mg/dL (0.0-0.2); MAGNESIUM 1.3 mg/dL (1.8-2.4); TOTAL BILIRUBIN 0.2 mg/dL (0.2-1.0)
[2017-08-02 11:26] LABS: CKMB MASS < 0.5 ng/mL (0.0-3.6); CREATINE KINASE 74 U/L (26-192)
[2017-08-02 11:50] LABS: BILIRUBIN,URINE NEGATIVE (NEG); GLUCOSE,URINE NEGATIVE (NEG); NITRITE,URINE NEGATIVE (NEG); PH,URINE 6.5; PROTEIN,URINE 30 mg/dL (NEG-TRACE); UROBILINOGEN,URINE 0.2 mg/dL (0.2 mg/dL)
[2017-08-02 12:08] LABS: BACTERIA,URINE FEW /HPF (0-FEW); RBC,URINE RARE /HPF (0-2); SQUAMOUS EPITHELIAL CELL,UR MOD /LPF
--- NOTE | 2017-08-02 12:13 | EKG ---
[facility] [address] [place] [address] Test Date: 2017-08-02 Test Time: 11:08:25 Pat Name: MILEY GUAJARDO Department: Room: Gender: F [employer] C[employer]: : 1975 Requested By: NADINE DUMONT Order Number: [id number] Reading MD: David Berg Measurements Intervals [place] Rate: 69 P: 50 OR: 152 QRS: 9 QRSD: 78 T: 24 QT: 412 QTc: 443 Interpretive Statements SINUS RHYTHM Electronically Signed On 08-07-2017 10:22:14 CDT by David Berg
[2017-08-02] MEDS ORDERED: MAGNESIUM SULFATE 2GM 50 ML IV ONE (13:00)
[2017-08-02] MEDS ORDERED: HYDR-2758 PO (13:36)
[2017-08-02] MEDS ORDERED: CEPH-264 PO (13:36)
[2017-08-02 14:25] VITALS: BP 180/97
== END 2017-08-02 15:26 | disposition home or self-care (01) ==
LOC: ER 10:13
DX: R10.31 Right lower quadrant pain (principal); R11.2 Nausea with vomiting, unspecified; F41.9 Anxiety disorder, unspecified; F32.9 Major depressive disorder, single episode, unspecified; E11.9 Type 2 diabetes mellitus without complications; K21.9 Gastro-esophageal reflux disease without esophagitis; I10 Essential (primary) hypertension; G43.909 Migraine, unspecified, not intractable, without status migrainosus; Z87.442 Personal history of urinary calculi; Z90.49 Acquired absence of other specified parts of digestive tract; Z98.51 Tubal ligation status; Z88.1 Allergy status to other antibiotic agents; Z88.8 Allergy status to other drugs, medicaments and biological substances
CPT/HCPCS: 36415; 80048; 80076; 81001; 81025; 82553; 83690; 83735; 83880; 84484; 85025; 87086; 93005; 96361; 96365; 96375; 96376; 99285; J1170; J2405; J7030; J7060

== ENCOUNTER 2017-10-21 15:44 | Emergency (ER) | payer BC ==
[~2017-10-21] VITALS: Ht 170.2 cm; Wt 110.7 kg
[~2017-10-21 15:44] MED LIST changes: +CEPH-264 PO
[2017-10-21 16:16] LABS: BILIRUBIN,URINE NEGATIVE (NEG); GLUCOSE,URINE 100 mg/dL (NEG); NITRITE,URINE POSITIVE (NEG); PROTEIN,URINE NEGATIVE (NEG-TRACE); UROBILINOGEN,URINE 0.2 mg/dL (0.2 mg/dL)
[2017-10-21 16:23] LABS: BACTERIA,URINE MANY /HPF (0-FEW); RBC,URINE 0 /HPF (0-2); SQUAMOUS EPITHELIAL CELL,UR MANY /LPF
[2017-10-21 16:30] VITALS: BP 134/60
--- NOTE | 2017-10-21 16:30 | EKG ---
[facility] [address] [place] [address] Test Date: 2017-10-21 Test Time: 16:24:59 Pat Name: MILEY GUAJARDO Department: Room: Gender: F Payroll Bookkeeper: : 1975 Requested By: HANH COHEN Order Number: [id number] Reading MD: David Berg MD Measurements Intervals [place] Rate: 76 P: 48 SC: 144 QRS: 18 QRSD: 74 T: 30 QT: 378 QTc: 430 Interpretive Statements SINUS RHYTHM Electronically Signed On 10-26-2017 16:05:33 QUIRK SANDER by David Berg MD
[2017-10-21 16:39] LABS: BARBITURATES NEG (NEG); BENZODIAZEPINES NEG (NEG); CANNABINOIDS NEG (NEG); COCAINE NEG (NEG); METHADONE NEG (NEG); OPIATES POS (NEG); PHENCYCLIDINE NEG (NEG)
[2017-10-21 16:51] LABS: BASO % 0 % (0-3); EOS % 3 % (0-3); HEMOGLOBIN 11.8 g/dL (12.0-15.5); LYMPH # 1.9 x10^3/uL (1.0-4.8); LYMPH % 27 % (24-48); MEAN CORPUSCULAR HEMOGLOBIN 29 pg (25-35); MEAN CORPUSCULAR HGB CONC 33 g/dL (31-37); MEAN CORPUSCULAR VOLUME 88 fL (79-100); MONO % 6 % (0-9); NEUT % 64 % (31-73); PLATELET COUNT 192 x10^3/uL (140-400); RED BLOOD COUNT 4.11 x10^6/uL (3.50-5.40); RED CELL DISTRIBUTION WIDTH 15.4 % (11.5-14.5); WHITE BLOOD COUNT 6.9 x10^3/uL (4.0-11.0)
[2017-10-21] MEDS: IV NORMAL SALINE 1000ML BAG 1,000 ML IV ONE (16:55)
[2017-10-21 17:18] LABS: CREATININE 0.9 mg/dL (0.6-1.0); POTASSIUM 4.8 mmol/L (3.5-5.1)
[2017-10-21 17:24] LABS: ALBUMIN 3.8 g/dL (3.4-5.0); MAGNESIUM 1.7 mg/dL (1.8-2.4); TOTAL BILIRUBIN 0.2 mg/dL (0.2-1.0); TOTAL PROTEIN 7.6 g/dL (6.4-8.2)
--- NOTE | 2017-10-21 19:12 | ED.ADGEN ---
Past Medical History Past Medical History: Anxiety, Depression, Diabetes-Type II, GERD, Hypertension , Kidney Stone, Migraines, Other Additional Past Medical Histor: Borderline Personality Disorder,ENDOMETRIOSIS Past Surgical History: Appendectomy, Cholecystectomy, , Tonsillectomy , Tubal ligation, Other Additional Past Surgical Histo: Colonoscopy,Sinus tumor removed Alcohol Use: None Drug Use: None Adult General Chief Complaint Chief Complaint: SYNCOPE HPI HPI Patient is a 42 year old woman, history of type 2 diabetes mellitus, hypertension, anxiety, borderline personality disorder, syncope, who presents emergency Department her syncopal episode. Patient states that she stood up to walk from her liver under her kitchen a glass of water, immediately lightheaded , and then had a syncopal episode where she fell backwards striking her back against a cabinet door. She states she did not strike her head, states that she was "only out for a few seconds". She denies any chest pain or shortness breath , she has been feeling nauseous over the past several days, with one episode of vomiting last week, denies any cough, any fevers or chills, any focal weakness, numbness, tingling, headache or vision changes. She states that she has been feeling "out of it", over the past 2 weeks or so, states that she was seen by her primary care provider recently, and had adjustments made to her muscle relaxers, with before that, she had had adjustments made her blood pressure medication, states she been initiated on Norvasc after blood pressure was noted to be "in the 200s", and then when she returned complaining of dizziness and lightheadedness, it was found that her blood pressure was "in the 80s", and she was taken off her Norvasc. She states that she's been taking her other medications as directed without any changes since that time. She states that she 's been feeling unwell over the past 2 weeks or so. At this time she is complaining of pain in her neck, also in her back, and continued mild lightheadedness and generalized fatigue. Review of Systems Review of Systems Constitutional: Denies fever or chills. []Generalized fatigue and malaise. Eyes: Denies change in visual acuity. [] HENT: Denies nasal congestion or sore throat. [] Respiratory: Denies cough or shortness of breath. [] Cardiovascular: Denies chest pain or edema. [] GI: Denies abdominal pain, nausea, vomiting, bloody stools or diarrhea. [] : Denies dysuria. [] Musculoskeletal: Pain in the upper back and neck. Integument: Denies rash. [] Neurologic: Denies headache, focal weakness or sensory changes. [] Syncope. Endocrine: Denies polyuria or polydipsia. [] Lymphatic: Denies swollen glands. [] Psychiatric: Denies depression or anxiety. [] Current Medications Current Medications Current Medications Medications (Trade) Dose Ordered Sig/Zenaida Start Time Stop Time Status Last Admin Dose Admin Sodium Chloride 1,000 ml @ 1,000 mls/hr 1X ONCE 10/21/17 16:45 10/21/17 17:26 DC Allergies Allergies Allergies Coded Allergies Type Severity Reaction Last Updated Verified Nitrofurantoin Macrocrystal Allergy Intermediate hives 12/19/16 Yes eletriptan HBr Allergy Intermediate "Heart races" 12/19/16 Yes metoclopramide HCl Allergy Intermediate rash 12/19/16 Yes nalbuphine HCl Allergy Intermediate itch 12/19/16 Yes nitrofurantoin Allergy Intermediate hives 12/19/16 Yes tobramycin Allergy Unknown swelling - lips, eyes 04/21/17 Yes prochlorperazine edisylate Adverse Reaction Intermediate "Shakes" 12/19/16 Yes prochlorperazine maleate Adverse Reaction Intermediate "Shakes" 12/19/16 Yes Physical Exam Physical Exam Constitutional: Well developed, well nourished, no acute distress, non-toxic appearance. [] HENT: Normocephalic, atraumatic, bilateral external ears normal, oropharynx moist, no oral exudates, nose normal. [] Eyes: PERRLA, EOMI, conjunctiva normal, no discharge. [] Neck: Normal range of motion, no tenderness, supple, no stridor. [Mild initial patient in the paraspinal muscles of the right side of the neck extending into the trapezius.] Cardiovascular:Heart rate regular rhythm, no murmur, S1, S2, no rubs or gallops. [] Lungs & Thorax: Bilateral breath sounds clear to auscultation, no chest wall crepitus or tenderness. [] Abdomen: Bowel sounds normal, soft, no tenderness, no rebound, rigidity, no guarding, no masses, no pulsatile masses. [] Skin: Warm, dry, no erythema, no rash. [] Back: Patient with tenderness palpation both midline and paraspinal on the mid thoracic region, patient is noted to have abrasion across the middle portion of her back, which she states is where she struck the cabinet door when she fell, no significant ecchymosis or laceration identified, patient with tenderness throughout this region but no bony point tenderness or crepitus or deformity identified, patient also complains of pain in the upper thoracic and lower cervical region, again no step-offs or deformities are identified, patient has mild soft tissue swelling and tenderness, more in the paraspinal muscles on the right side of the neck, extending into the trapezius. No CVA tenderness. [] Extremities: No tenderness, no cyanosis, no clubbing, ROM intact, no edema. [] Neurologic: Alert and oriented X 3, normal motor function, normal sensory function, no focal deficits noted. [] Psychologic: Affect normal, judgement normal, mood normal. [] Current Patient Data Vital Signs Vital Signs Date Time Temp Pulse Resp B/P (MAP) Pulse Ox O2 Delivery O2 Flow Rate FiO2 10/21/17 17:00 76 20 98 Room Air 10/21/17 16:30 134/60 (84) 10/21/17 15:55 98.5 98.5 Lab Values Laboratory Tests Test 10/21/17 16:09 10/21/17 16:10 POC Urine HCG, Qualitative Hcg negative (Negative) White Blood Count 6.9 x10^3/uL (4.0-11.0) Red Blood Count 4.11 x10^6/uL (3.50-5.40) Hemoglobin 11.8 g/dL (12.0-15.5) L Hematocrit 36.0 % (36.0-47.0) Mean Corpuscular Volume 88 fL (79-100) Mean Corpuscular Hemoglobin 29 pg (25-35) Mean Corpuscular Hemoglobin Concent 33 g/dL (31-37) Red Cell Distribution Width 15.4 % (11.5-14.5) H Platelet Count 192 x10^3/uL (140-400) Neutrophils (%) (Auto) 64 % (31-73) Lymphocytes (%) (Auto) 27 % (24-48) Monocytes (%) (Auto) 6 % (0-9) Eosinophils (%) (Auto) 3 % (0-3) Basophils (%) (Auto) 0 % (0-3) Neutrophils # (Auto) 4.4 x10^3uL (1.8-7.7) Lymphocytes # (Auto) 1.9 x10^3/uL (1.0-4.8) Monocytes # (Auto) 0.4 x10^3/uL (0.0-1.1) Eosinophils # (Auto) 0.2 x10^3/uL (0.0-0.7) Basophils # (Auto) 0.0 x10^3/uL (0.0-0.2) Urine Collection Type Void Urine Color Yellow Urine Clarity Hazy Urine pH 7.0 Urine Specific Una 1.015 Urine Protein Negative mg/dL (NEG-TRACE) Urine Glucose (UA) 100 mg/dL (NEG) Urine Ketones (Stick) Trace mg/dL (NEG) Urine Blood Negative (NEG) Urine Nitrite Positive (NEG) Urine Bilirubin Negative (NEG) Urine Urobilinogen Dipstick 0.2 mg/dL (0.2 mg/dL) Urine Leukocyte Esterase Moderate (NEG) Urine RBC 0 /HPF (0-2) Urine WBC 11-20 /HPF (0-4) Urine Squamous Epithelial Cells Many /LPF Urine Bacteria Many /HPF (0-FEW) Sodium Level 133 mmol/L (136-145) L Potassium Level 4.8 mmol/L (3.5-5.1) Chloride Level 96 mmol/L (98-107) L Carbon Dioxide Level 29 mmol/L (21-32) Anion Gap 8 (6-14) Blood Urea Nitrogen 11 mg/dL (7-20) Creatinine 0.9 mg/dL (0.6-1.0) Estimated GFR (Cockcroft-Gault) 68.0 BUN/Creatinine Ratio 12 (6-20) Glucose Level 164 mg/dL (70-99) H Calcium Level 10.0 mg/dL (8.5-10.1) Magnesium Level 1.7 mg/dL (1.8-2.4) L Total Bilirubin 0.2 mg/dL (0.2-1.0) Aspartate Amino Transferase (AST) 28 U/L (15-37) Alanine Aminotransferase (ALT) 21 U/L (14-59) Alkaline Phosphatase 106 U/L (46-116) Troponin I Quantitative < 0.017 ng/mL (0.000-0.055) EX-Bms-Z-Type Natriuretic Peptide 1161 pg/mL (0-124) H Total Protein 7.6 g/dL (6.4-8.2) Albumin 3.8 g/dL (3.4-5.0) Albumin/Globulin Ratio 1.0 (1.0-1.7) Urine Opiates Screen Pos (NEG) Urine Methadone Screen Neg (NEG) Urine Barbiturates Neg (NEG) Urine Phencyclidine Screen Neg (NEG) Urine Amphetamine/Methamphetamine Neg (NEG) Urine Benzodiazepines Screen Neg (NEG) Urine Cocaine Screen Neg (NEG) Urine Cannabinoids Screen Neg (NEG) Urine Ethyl Alcohol Neg (NEG) Laboratory Tests 10/21/17 16:10 Laboratory Tests 10/21/17 16:10 EKG EKG EC: Sinus rhythm, heart rate 76 beats are minute, upright axis, QTC of 4: 30, CA 144, QRS of 74, no ST elevations or depressions, no evidence of acute ST abnormalities. As interpreted by me.[] Radiology/Procedures Radiology/Procedures [] Course & Med Decision Making Course & Med Decision Making Pertinent Labs and Imaging studies reviewed. (See chart for details) Based on patient's report, concerned that she may be potentially experiencing side effects from the increased muscle relaxers that have been prescribed for her, patient also states that she is taking opiates that time. Patient with a normal neurologic examination in the ED, and initially discussed with patient holding off on imaging of the head, however after additional discussion patient is reporting additional symptoms of occasional dizziness and confusion over the past several weeks, therefore all she is lucid and normal this time, will obtain CT of the head and neck, along with x-rays of the thoracic spine, chest, laboratory studies including urinalysis. Patient states that she does sometimes have pain with urination. Patient was agreeable this plan, I did discuss with patient that until we ensure that her head CT was normal, we were unable to give her additional medications orally or via IV at this time for pain. Patient did voice understanding with this plan, however after I left the room, patient came out and spoke with the nurse and stated that she wanted to sign AGAINST MEDICAL ADVICE, as she was requesting pain medication which was not provided at this time. I did reiterate the patient the reasoning for holding off on pain medication until she receives her imaging, patient at this time is unwilling to stay for additional evaluation, patient is ambulating without difficulty, is calm and cooperative and appropriate in her speech and responses, Jazlyn paperwork was completed with nursing staff. Patient's imaging was canceled, laboratory studies were in progress, urinalysis did reveal evidence of a nitrate positive urinary tract infection. As patient had complained of urinary symptoms, we did attempt to contact the patient to discuss these findings for treatment and potential return to the ED for additional evaluation. Message was left by nurse Pederson on patient's available phone numbers, and information for continued attempts to contact, and to follow-up with patient was passed on to charge nurse Allegra at time of shift change. Dragon Disclaimer Dragon Disclaimer This electronic medical record was generated, in whole or in part, using a voice recognition dictation system. Departure Impression: Primary Impression: Left against medical advice Disposition: 07 AGAINST MEDICAL ADVICE Condition: STABLE HANH COHEN DO Oct 21, 2017 19:12
== END 2017-10-21 17:05 | disposition left against medical advice (07) ==
LOC: ER 15:44
DX: R55 Syncope and collapse (principal); R11.2 Nausea with vomiting, unspecified; R42 Dizziness and giddiness; K21.9 Gastro-esophageal reflux disease without esophagitis; I10 Essential (primary) hypertension; E11.9 Type 2 diabetes mellitus without complications; G43.909 Migraine, unspecified, not intractable, without status migrainosus; Z90.49 Acquired absence of other specified parts of digestive tract; Z98.51 Tubal ligation status; Z98.890 Other specified postprocedural states; Z88.1 Allergy status to other antibiotic agents; Z88.8 Allergy status to other drugs, medicaments and biological substances
CPT/HCPCS: 36415; 80053; 80307; 81001; 81025; 83735; 83880; 84484; 85025; 93005; 99285; G0479

== ENCOUNTER 2018-01-16 11:50 | Emergency (ER) | payer BC ==
[2018-01-16] MEDS: HYDROcodone/APAP 5/325MG 1 TAB TABLET PO (12:56)
== END 2018-01-16 14:45 | disposition home or self-care (01) ==
LOC: ER 11:50
DX: S82.892A Other fracture of left lower leg, initial encounter for closed fracture (principal); F41.9 Anxiety disorder, unspecified; F32.9 Major depressive disorder, single episode, unspecified; E11.9 Type 2 diabetes mellitus without complications; K21.9 Gastro-esophageal reflux disease without esophagitis; I10 Essential (primary) hypertension; G43.909 Migraine, unspecified, not intractable, without status migrainosus; Z87.442 Personal history of urinary calculi; Z90.49 Acquired absence of other specified parts of digestive tract; Z98.51 Tubal ligation status; Z88.8 Allergy status to other drugs, medicaments and biological substances; Z88.1 Allergy status to other antibiotic agents; W18.39XA Other fall on same level, initial encounter; Y93.89 Activity, other specified; Y92.89 Other specified places as the place of occurrence of the external cause; Y99.8 Other external cause status
CPT/HCPCS: 29515; 73564; 73610; 99284

== ENCOUNTER 2018-01-17 09:45 | Emergency (ER) | payer BC ==
[2018-01-17] MEDS: MORPHINE SULFATE 4 MG/ML DISP.SYRIN. IM (11:19)
== END 2018-01-17 11:42 | disposition home or self-care (01) ==
LOC: ER 09:45
DX: S82.892G Other fracture of left lower leg, subsequent encounter for closed fracture with delayed healing (principal); G43.909 Migraine, unspecified, not intractable, without status migrainosus; I10 Essential (primary) hypertension; E11.9 Type 2 diabetes mellitus without complications; Z90.49 Acquired absence of other specified parts of digestive tract; Z98.51 Tubal ligation status; Z88.1 Allergy status to other antibiotic agents; Z88.8 Allergy status to other drugs, medicaments and biological substances; X58.XXXD Exposure to other specified factors, subsequent encounter
CPT/HCPCS: 96372; 99284-25; J2270

== ENCOUNTER 2018-01-18 22:14 | Inpatient (IN) | payer BC ==
[2018-01-18] MEDS: LORazepam 1 MG TABLET PO (23:36)
[2018-01-18] MEDS: fentaNYL PF VIAL 100 MCG/2 ML VIAL IM (23:36)
[2018-01-18] MEDS: KETOROLAC 60 MG/2 ML INJ. IM (23:36)
[2018-01-19 01:52] LABS: ADD MAN DIFF? NO
[2018-01-19 01:57] LABS: BASO # 0.1 x10^3/uL (0.0-0.2); BASO % 1 % (0-3); EOS # 0.2 x10^3/uL (0.0-0.7); EOS % 3 % (0-3); HEMATOCRIT 31.3 % (36.0-47.0); HEMOGLOBIN 10.7 g/dL (12.0-15.5); LYMPH # 3.8 x10^3/uL (1.0-4.8); LYMPH % 49 % (24-48); MEAN CORPUSCULAR HEMOGLOBIN 30 pg (25-35); MEAN CORPUSCULAR HGB CONC 34 g/dL (31-37); MEAN CORPUSCULAR VOLUME 88 fL (79-100); MONO # 0.6 x10^3/uL (0.0-1.1); MONO % 7 % (0-9); NEUT % 39 % (31-73); PLATELET COUNT 256 x10^3/uL (140-400); RED BLOOD COUNT 3.56 x10^6/uL (3.50-5.40); RED CELL DISTRIBUTION WIDTH 15.3 % (11.5-14.5); WHITE BLOOD COUNT 7.7 x10^3/uL (4.0-11.0)
[2018-01-19 02:06] LABS: INR 0.9 (0.8-1.1); PARTIAL THROMBOPLASTIN TIME 25 SEC (24-38); PROTHROMBIN TIME PATIENT 11.8 SEC (11.7-14.0)
[2018-01-19 02:07] LABS: ANION GAP 9 (6-14); BLOOD UREA NITROGEN 12 mg/dL (7-20); BUN/CREATININE RATIO 15 (6-20); CALCIUM 8.7 mg/dL (8.5-10.1); CARBON DIOXIDE 27 mmol/L (21-32); CHLORIDE 102 mmol/L (98-107); CREATININE 0.8 mg/dL (0.6-1.0); GFR 77.9; GLUCOSE 124 mg/dL (70-99); POTASSIUM 4.6 mmol/L (3.5-5.1); SODIUM 138 mmol/L (136-145)
[2018-01-19 02:13] LABS: ALBUMIN 3.5 g/dL (3.4-5.0); ALBUMIN/GLOBULIN RATIO 1.1 (1.0-1.7); ALK PHOS 110 U/L (46-116); ALT (SGPT) 26 U/L (14-59); AST (SGOT) 28 U/L (15-37); MAGNESIUM 1.7 mg/dL (1.8-2.4); TOTAL PROTEIN 6.6 g/dL (6.4-8.2)
[2018-01-19 02:14] LABS: D-DIMER 0.41 ug/mlFEU (0.00-0.50)
[2018-01-19 02:14] LABS: TOTAL BILIRUBIN < 0.1 mg/dL (0.2-1.0)
[2018-01-19 02:15] LABS: ETHANOL < 10 mg/dL (0-10); TROPONINI < 0.017 ng/mL (0.000-0.055)
[2018-01-19 02:23] LABS: CKMB MASS < 0.5 ng/mL (0.0-3.6); CREATINE KINASE 51 U/L (26-192)
[2018-01-19] MEDS: IV NORMAL SALINE 1000ML BAG 1,000 ML IV ×2 (03:00→03:56)
[2018-01-19] MEDS: fentaNYL PF VIAL 100 MCG/2 ML VIAL IV ×6 (03:05→13:38)
[2018-01-19 08:08] LABS: POC GLUCOSE 132 mg/dL (70-99)
[2018-01-19 11:23] LABS: POC GLUCOSE 115 mg/dL (70-99)
[2018-01-19] MEDS: HYDROcodone/APAP 5/325MG 1 TAB TABLET PO ×2 (12:44→16:53)
[2018-01-19] MEDS: ONDANSETRON ODT 4 MG TAB.RAPDIS. PO (13:34)
[2018-01-19 16:47] LABS: POC GLUCOSE 117 mg/dL (70-99)
[2018-01-19 22:16] LABS: MRSA BY PCR Negative (Negative)
== END 2018-01-19 18:06 | disposition home or self-care (01) | DRG 563 ==
LOC: ER 22:14 → 4 NORTH 01-19 00:38
DX: S82.892A Other fracture of left lower leg, initial encounter for closed fracture (principal); E11.9 Type 2 diabetes mellitus without complications; F32.9 Major depressive disorder, single episode, unspecified; F41.9 Anxiety disorder, unspecified; F60.3 Borderline personality disorder; I10 Essential (primary) hypertension; K21.9 Gastro-esophageal reflux disease without esophagitis; K58.9 Irritable bowel syndrome, unspecified; W00.0XXA Fall on same level due to ice and snow, initial encounter; Z90.710 Acquired absence of both cervix and uterus; Z90.49 Acquired absence of other specified parts of digestive tract; Z87.442 Personal history of urinary calculi; Y93.89 Activity, other specified; Y92.89 Other specified places as the place of occurrence of the external cause; Y99.8 Other external cause status; Z83.3 Family history of diabetes mellitus; Z82.49 Family history of ischemic heart disease and other diseases of the circulatory system; Z82.3 Family history of stroke
CPT/HCPCS: 36415; 71045; 73564; 73610; 80053; 82306; 82553; 82962; 83735; 84484; 85025; 85379; 85610; 85730; 87641; 93005; 93923; 93971; G0480; J1885; J3010; J7030; Q0162

== ENCOUNTER 2018-01-26 13:35 | Emergency (ER) | payer BC | END 2018-01-26 14:25 | disposition home or self-care (01) | LOC: ER 13:35 | DX: M79.605 Pain in left leg (principal); G89.29 Other chronic pain; F41.9 Anxiety disorder, unspecified; J44.9 Chronic obstructive pulmonary disease, unspecified; F32.9 Major depressive disorder, single episode, unspecified; E11.9 Type 2 diabetes mellitus without complications; I10 Essential (primary) hypertension; K58.9 Irritable bowel syndrome, unspecified; Z87.442 Personal history of urinary calculi; Z87.01 Personal history of pneumonia (recurrent); Z90.49 Acquired absence of other specified parts of digestive tract; Z98.51 Tubal ligation status; Z88.1 Allergy status to other antibiotic agents; Z88.8 Allergy status to other drugs, medicaments and biological substances | CPT/HCPCS: 99283 ==

== ENCOUNTER 2018-01-28 17:30 | Emergency (ER) | payer BC | END 2018-01-28 19:27 | disposition home or self-care (01) | LOC: ER 19:27 | DX: M79.605 Pain in left leg (principal); F41.9 Anxiety disorder, unspecified; J44.9 Chronic obstructive pulmonary disease, unspecified; F32.9 Major depressive disorder, single episode, unspecified; E11.9 Type 2 diabetes mellitus without complications; I10 Essential (primary) hypertension; K58.9 Irritable bowel syndrome, unspecified; Z87.442 Personal history of urinary calculi; Z87.01 Personal history of pneumonia (recurrent); Z90.49 Acquired absence of other specified parts of digestive tract; Z98.51 Tubal ligation status; Z88.1 Allergy status to other antibiotic agents; Z88.8 Allergy status to other drugs, medicaments and biological substances; W18.39XA Other fall on same level, initial encounter; Y93.89 Activity, other specified; Y92.89 Other specified places as the place of occurrence of the external cause; Y99.8 Other external cause status | CPT/HCPCS: 73590; 73610; 99284 ==

== ENCOUNTER 2018-02-02 23:10 | Emergency (ER) | payer BC | END 2018-02-02 23:29 | disposition home or self-care (01) | LOC: ER 23:29 | DX: K08.89 Other specified disorders of teeth and supporting structures (principal); I10 Essential (primary) hypertension; F41.9 Anxiety disorder, unspecified; J44.9 Chronic obstructive pulmonary disease, unspecified; F32.9 Major depressive disorder, single episode, unspecified; E11.9 Type 2 diabetes mellitus without complications; K58.9 Irritable bowel syndrome, unspecified; Z87.442 Personal history of urinary calculi; Z90.49 Acquired absence of other specified parts of digestive tract; Z98.51 Tubal ligation status; Z88.1 Allergy status to other antibiotic agents; Z88.8 Allergy status to other drugs, medicaments and biological substances; Z76.5 Malingerer [conscious simulation] | CPT/HCPCS: 99283 ==

== ENCOUNTER 2018-03-21 16:43 | Inpatient (IN) | payer BC ==
[2018-03-21 17:49] LABS: BILIRUBIN,URINE NEGATIVE (NEG); CLARITY,URINE CLEAR; COLOR,URINE ORANGE; GLUCOSE,URINE NEGATIVE (NEG); PROTEIN,URINE 30 mg/dL (NEG-TRACE); UROBILINOGEN,URINE 0.2 mg/dL (0.2 mg/dL)
[2018-03-21 17:56] LABS: BACTERIA,URINE FEW /HPF (0-FEW); RBC,URINE >40 /HPF (0-2); SQUAMOUS EPITHELIAL CELL,UR MOD /LPF
[2018-03-21 18:36] LABS: ADD MAN DIFF? NO
[2018-03-21 18:50] LABS: BASO # 0.1 x10^3/uL (0.0-0.2); BASO % 1 % (0-3); EOS # 0.1 x10^3/uL (0.0-0.7); EOS % 3 % (0-3); HEMOGLOBIN 10.9 g/dL (12.0-15.5); LYMPH # 2.2 x10^3/uL (1.0-4.8); LYMPH % 48 % (24-48); MEAN CORPUSCULAR HEMOGLOBIN 29 pg (25-35); MEAN CORPUSCULAR HGB CONC 33 g/dL (31-37); MEAN CORPUSCULAR VOLUME 87 fL (79-100); MONO # 0.3 x10^3/uL (0.0-1.1); MONO % 6 % (0-9); NEUT # 1.9 x10^3uL (1.8-7.7); NEUT % 42 % (31-73); PLATELET COUNT 254 x10^3/uL (140-400); RED CELL DISTRIBUTION WIDTH 15.2 % (11.5-14.5); WHITE BLOOD COUNT 4.6 x10^3/uL (4.0-11.0)
[2018-03-21 18:56] LABS: ANION GAP 11 (6-14); BLOOD UREA NITROGEN 7 mg/dL (7-20); BUN/CREATININE RATIO 10 (6-20); CALCIUM 8.9 mg/dL (8.5-10.1); CARBON DIOXIDE 26 mmol/L (21-32); CHLORIDE 106 mmol/L (98-107); CREATININE 0.7 mg/dL (0.6-1.0); GFR 90.9; GLUCOSE 132 mg/dL (70-99); POTASSIUM 3.7 mmol/L (3.5-5.1); SODIUM 143 mmol/L (136-145)
[2018-03-21 19:02] LABS: ALBUMIN 3.5 g/dL (3.4-5.0); ALBUMIN/GLOBULIN RATIO 0.9 (1.0-1.7); ALK PHOS 86 U/L (46-116); ALT (SGPT) 18 U/L (14-59); AST (SGOT) 19 U/L (15-37); LIPASE 187 U/L (73-393); TOTAL BILIRUBIN 0.2 mg/dL (0.2-1.0); TOTAL PROTEIN 7.3 g/dL (6.4-8.2)
[2018-03-21] MEDS: IV NORMAL SALINE 1000ML BAG 1,000 ML IV (19:30)
[2018-03-21 19:48] LABS: BILIRUBIN,URINE NEGATIVE (NEG); CLARITY,URINE CLEAR; GLUCOSE,URINE NEGATIVE (NEG); NITRITE,URINE POSITIVE (NEG); PROTEIN,URINE NEGATIVE (NEG-TRACE)
[2018-03-21] MEDS: SMZ/TMP 800/160MG TABLET. PO (20:00)
[2018-03-21] MEDS: PIPERACILLIN/TAZOBACTAM 3.375 GM in IV NORMAL SALINE 50ML 50 ML IV (20:07)
[2018-03-21 20:08] LABS: AMORPHOUS SEDIMENT,UR PRESENT /HPF; BACTERIA,URINE FEW /HPF (0-FEW); COLOR,URINE YELLOW; RBC,URINE 0 /HPF (0-2); SQUAMOUS EPITHELIAL CELL,UR MOD /LPF; WBC,URINE OCC /HPF (0-4)
[2018-03-21] MEDS: ONDANSETRON PF 4 MG/2 ML VIAL. IV (20:39)
[2018-03-21] MEDS: fentaNYL PF VIAL 100 MCG/2 ML VIAL IV (21:20)
[2018-03-21] MEDS: hydrALAZINE 20 MG/ML VIAL. IVP (21:26)
[2018-03-21] MEDS ORDERED: SULFAMETH/TRIMETH 20 ML in IV DEXTROSE 5% 500 ML IV (22:00)
[2018-03-21] MEDS: ZOLPIDEM 5 MG TABLET. PO (22:50)
[2018-03-21] MEDS: HYDROcodone/APAP 5/325MG 1 TAB TABLET PO (22:53)
[2018-03-22] MEDS: fentaNYL PF VIAL 100 MCG/2 ML VIAL IV ×5 (00:17→19:18)
[2018-03-22] MEDS: ONDANSETRON PF 4 MG/2 ML VIAL. IV ×3 (04:14→19:17)
[2018-03-22] MEDS: IV NORMAL SALINE 1000ML BAG 1,000 ML IV ×3 (06:41→21:46)
[2018-03-22 08:22] LABS: ADD MAN DIFF? NO
[2018-03-22 08:34] LABS: BASO % 1 % (0-3); EOS # 0.1 x10^3/uL (0.0-0.7); EOS % 2 % (0-3); HEMOGLOBIN 10.3 g/dL (12.0-15.5); LYMPH % 37 % (24-48); MEAN CORPUSCULAR HEMOGLOBIN 30 pg (25-35); MEAN CORPUSCULAR HGB CONC 34 g/dL (31-37); MEAN CORPUSCULAR VOLUME 86 fL (79-100); MONO # 0.3 x10^3/uL (0.0-1.1); MONO % 6 % (0-9); NEUT # 2.9 x10^3uL (1.8-7.7); NEUT % 54 % (31-73); PLATELET COUNT 243 x10^3/uL (140-400); RED BLOOD COUNT 3.48 x10^6/uL (3.50-5.40); RED CELL DISTRIBUTION WIDTH 15.1 % (11.5-14.5); WHITE BLOOD COUNT 5.4 x10^3/uL (4.0-11.0)
[2018-03-22 08:50] LABS: ALBUMIN 3.2 g/dL (3.4-5.0); ALK PHOS 81 U/L (46-116); ALT (SGPT) 16 U/L (14-59); ANION GAP 8 (6-14); AST (SGOT) 18 U/L (15-37); BLOOD UREA NITROGEN 7 mg/dL (7-20); BUN/CREATININE RATIO 12 (6-20); CALCIUM 8.8 mg/dL (8.5-10.1); CARBON DIOXIDE 26 mmol/L (21-32); CHLORIDE 106 mmol/L (98-107); CREATININE 0.6 mg/dL (0.6-1.0); GFR 108.6; GLUCOSE 148 mg/dL (70-99); POTASSIUM 3.4 mmol/L (3.5-5.1); SODIUM 140 mmol/L (136-145); TOTAL BILIRUBIN 0.3 mg/dL (0.2-1.0); TOTAL PROTEIN 6.5 g/dL (6.4-8.2)
[2018-03-22] MEDS: TAMSULOSIN 0.4 MG CAP.ER.24H. PO (09:31)
[2018-03-22] MEDS: PROPRANOLOL 40 MG TABLET. PO (09:32)
[2018-03-22] MEDS: SMZ/TMP 800/160MG TABLET. PO ×2 (09:32→21:47)
[2018-03-22] MEDS: HYDROcodone/APAP 5/325MG 1 TAB TABLET PO ×3 (09:47→21:51)
[2018-03-22 11:59] LABS: POC GLUCOSE 139 mg/dL (70-99)
[2018-03-22 11:59] LABS: POC GLUCOSE 116 mg/dL (70-99)
[2018-03-22] MEDS: LORazepam 0.5 MG TABLET PO (13:09)
[2018-03-22] MEDS: POTASSIUM CHLORIDE 20 MEQ TABLET.ER. PO (17:05)
[2018-03-22] MEDS: ENOXAPARIN 40 MG/0.4 ML SYRINGE. SQ (17:05)
[2018-03-22 17:06] LABS: POC GLUCOSE 164 mg/dL (70-99)
[2018-03-22] MEDS: LISINOPRIL 5 MG TABLET. PO (17:06)
[2018-03-22] MEDS ORDERED: PROMETHAZINE 12.5 MG TABLET. PO (18:00)
[2018-03-22 20:52] LABS: POC GLUCOSE 149 mg/dL (70-99)
[2018-03-22] MEDS: QUEtiapine 100 MG TABLET. PO (21:00)
[2018-03-22] MEDS ORDERED: PROPRANOLOL 10 MG TABLET. PO (21:00)
[2018-03-22] MEDS: LACTOBACILLUS RHAMNOSUS GG 1 CAPSULE. PO (21:47)
[2018-03-22] MEDS: ZOLPIDEM 5 MG TABLET. PO (21:51)
[2018-03-22] MEDS ORDERED: ONDANSETRON ODT 4 MG TAB.RAPDIS. PO (22:00)
[2018-03-22 22:17] LABS: MRSA BY PCR Negative (Negative)
[2018-03-23] MEDS: LORazepam 0.5 MG TABLET PO (00:16)
[2018-03-23] MEDS: HYDROcodone/APAP 5/325MG 1 TAB TABLET PO (06:42)
[2018-03-23 07:40] LABS: POC GLUCOSE 129 mg/dL (70-99)
[2018-03-23] MEDS: TAMSULOSIN 0.4 MG CAP.ER.24H. PO (08:27)
[2018-03-23] MEDS: SMZ/TMP 800/160MG TABLET. PO (08:27)
[2018-03-23] MEDS: LACTOBACILLUS RHAMNOSUS GG 1 CAPSULE. PO (08:28)
[2018-03-23] MEDS: LISINOPRIL 5 MG TABLET. PO (08:28)
[2018-03-23] MEDS: PROPRANOLOL 40 MG TABLET. PO (08:29)
[2018-03-23] MEDS: fentaNYL PF VIAL 100 MCG/2 ML VIAL IV (08:37)
[2018-03-23 10:45] LABS: POC GLUCOSE 156 mg/dL (70-99)
[2018-03-23] MEDS: CYCLOBENZAPRINE 10 MG TABLET. PO (11:00)
[2018-03-23] MEDS: IV NORMAL SALINE 1000ML BAG 1,000 ML IV (11:10)
[2018-03-23] MEDS ORDERED: tiZANidine 4 MG TABLET. PO (11:30)
[2018-03-23 11:33] LABS: ADD MAN DIFF? NO
[2018-03-23 11:37] LABS: BASO % 1 % (0-3); EOS # 0.1 x10^3/uL (0.0-0.7); EOS % 3 % (0-3); HEMATOCRIT 29.1 % (36.0-47.0); LYMPH # 2.3 x10^3/uL (1.0-4.8); LYMPH % 57 % (24-48); MEAN CORPUSCULAR HEMOGLOBIN 30 pg (25-35); MEAN CORPUSCULAR HGB CONC 34 g/dL (31-37); MEAN CORPUSCULAR VOLUME 87 fL (79-100); MONO # 0.3 x10^3/uL (0.0-1.1); MONO % 8 % (0-9); NEUT # 1.3 x10^3uL (1.8-7.7); NEUT % 32 % (31-73); PLATELET COUNT 246 x10^3/uL (140-400); RED BLOOD COUNT 3.36 x10^6/uL (3.50-5.40); RED CELL DISTRIBUTION WIDTH 14.9 % (11.5-14.5)
[2018-03-23] MEDS: ONDANSETRON ODT 4 MG TAB.RAPDIS. PO (11:39)
[2018-03-23 11:52] LABS: ANION GAP 9 (6-14); BLOOD UREA NITROGEN 6 mg/dL (7-20); CALCIUM 8.9 mg/dL (8.5-10.1); CARBON DIOXIDE 27 mmol/L (21-32); CHLORIDE 104 mmol/L (98-107); CREATININE 0.7 mg/dL (0.6-1.0); GFR 90.9; GLUCOSE 144 mg/dL (70-99); POTASSIUM 3.8 mmol/L (3.5-5.1); SODIUM 140 mmol/L (136-145)
== END 2018-03-23 15:20 | disposition home or self-care (01) | DRG 694 ==
LOC: ER 16:43 → 4 NORTH 19:59
DX: N20.2 Calculus of kidney with calculus of ureter (principal); E66.01 Morbid (severe) obesity due to excess calories; N12 Tubulo-interstitial nephritis, not specified as acute or chronic; E11.9 Type 2 diabetes mellitus without complications; E87.6 Hypokalemia; G89.29 Other chronic pain; I10 Essential (primary) hypertension; I87.8 Other specified disorders of veins; J44.9 Chronic obstructive pulmonary disease, unspecified; K21.9 Gastro-esophageal reflux disease without esophagitis; K58.9 Irritable bowel syndrome, unspecified; Z82.3 Family history of stroke; Z82.49 Family history of ischemic heart disease and other diseases of the circulatory system; Z86.61 Personal history of infections of the central nervous system; Z87.442 Personal history of urinary calculi; Z90.49 Acquired absence of other specified parts of digestive tract; Z90.710 Acquired absence of both cervix and uterus; F32.9 Major depressive disorder, single episode, unspecified; F41.9 Anxiety disorder, unspecified; Z68.39 Body mass index [BMI] 39.0-39.9, adult
CPT/HCPCS: 36415; 51701; 72110; 74018; 74176; 80048; 80053; 81001; 82962; 83690; 85025; 87040; 87086; 87641; 96365; 99285; 99285-25; J0360; J1650; J2405; J2543; J3010; J7030; Q0162